=== PATIENT | male | born 1950 | race Caucasian/White ===

== ENCOUNTER → 2018-09-22 08:00 | Outpatient (CLI) | payer MEDICARE, OTHER, SELFPAY ==
--- NOTE | 2018-09-22 | IMM_PTH ---
PATIENT: RADHA DOMINGUEZ LOC: [facility] U#:[id number] AGE/SX: 75/M ROOM: RE09/22/[address]: Dr. Chandan Clifford MD : 1950 BED: DIS: SPEC #: [id number] RECD: 09/24/18 13:50 STATUS: CAROLYN MEAGHAN #: [id number] ROCK: 09/22/18 00:[address]: Chandan Clifford DEPT: IMMUNOHISTOCHEMISTRY RECD BY: Mary Puri Tissues: C - PROSTATE RIGHT Procedures: P40 (add) 34BE12 (initial) PHYSICIAN & INSTITUTION [place] [id number] SPECIMEN INFORMATION: Tissue Source: C - Right prostate, base, core biopsy Clinical Info: Elevated PSA Specimen Number: [id number] CPT code: 13371, 80340 METHODOLOGY: Deparaffinized sections of prefer/formalin-fixed tissue or PAP/DQ stained slides are incubated with monoclonal/polyclonal antibodies/oligonucleotide probes. Localization is made via biotin free immunoperoxidase method. Appropriate controls are performed and reacted as expected. Results on target cell population are indicated in the following table: RESULTS: ANTIBODY / CLONE RESULT Block C P40 (BC28) negative 34BE12 (34BE12) negative These tests were developed and their performance characteristics determined by [facility]. They may not have been cleared or approved by the U.S. Food and Drug Administration. The FDA has determined that such clearance or approval is not necessary. INTERPRETATION: C. Right prostate, base, core biopsy: Focal adenocarcinoma. SJ:herminia 09/25/18
--- NOTE | 2018-09-22 08:00 | PROSBIL_PTH ---
PATIENT: RADHA DOMINGUEZ LOC: [facility] U#:[id number] AGE/SX: 75/M ROOM: RE09/22/[address]: Dr. Chandan Clifford MD : 1950 BED: DIS: SPEC #: [id number] RECD: 09/22/18 16:56 STATUS: CAROLYN MEAGHAN #: [id number] ROCK: 09/22/18 08:[address]: Chandan Clifford DEPT: SURGICAL PATHOLOGY RECD BY: Justice Tracey Tissues: A - PROSTATE RIGHT B - PROSTATE RIGHT C - PROSTATE RIGHT D - PROSTATE LEFT E - PROSTATE LEFT F - PROSTATE LEFT Procedures: PROSTATE BX HEADER OPERATION: Prostate biopsy PRE-OP DIAGNOSIS: Elevated PSA TISSUE SUBMITTED: A - Right apex, B - Right mid, C - Right base, D - Left apex, E - Left mid, F - Left base MICROSCOPIC DIAGNOSIS A. Right prostate, apex, core biopsy: Prostatic tissue, negative for malignancy. B. Right prostate, mid, core biopsy: Prostatic tissue, negative for malignancy. Focal atrophy. C. Right prostate, base, core biopsy: Prostatic adenocarcinoma: [place] grade: 3+3=6 Number of cores involved: 1 out of 2 Proportion of tissue involved: <5% Perineural invasion: Not identified. Greatest tumor length: 0.1 cm Focal minimal acute and chronic inflammation and atrophy. See comment. D. Left prostate, apex, core biopsy: Prostatic tissue, negative for malignancy. E. Left prostate, mid, core biopsy: Prostatic tissue, negative for malignancy. Focal acute and chronic inflammation. F. Left prostate, base, core biopsy: Prostatic tissue, negative for malignancy. Focal mild acute and chronic inflammation. SJ:herminia 09/24/18 COMMENT C. Immunohistochemistry ([id number]) supports the above diagnosis. Case has been reviewed in consultation with Dr. Stewart who concurs with the above diagnosis. IDC:AM MICROSCOPIC DESCRIPTION Slides are reviewed. GROSS DESCRIPTION A - Received is one container designated prostate, right apex. The specimen consists of one elongated fragment of light hughes-white soft tissue measuring 1.5 cm in length and 0.1 cm in diameter. The specimen is totally submitted in one cassette. B - Received is one container designated prostate, right mid. The specimen consists of two elongated fragments of light hughes-white soft tissue each measuring 1.5 cm in length and 0.1 cm in diameter. The specimen is totally submitted in one cassette. C - Received is one container designated prostate, right base. The specimen consists of two elongated fragments of light hughes-white soft tissue measuring 1.3 and 1.5 cm in length and 0.1 cm in diameter. The specimen is totally submitted in one cassette. D - Received is one container designated prostate, left apex. The specimen consists of two elongated fragments of light hguhes-white soft tissue each measuring 1.8 cm in length and 0.1 cm in diameter. The specimen is totally submitted in one cassette. E - Received is one container designated prostate, left mid. The specimen consists of two elongated fragments of light hughes-white soft tissue measuring 1.2 and 1.5 cm in length and 0.1 cm in diameter. The specimen is totally submitted in one cassette. F - Received is one container designated prostate, left base. The specimen consists of two elongated fragments of light hughes-white soft tissue each measuring 1.5 cm in length and 0.1 cm in diameter. The specimen is totally submitted in one cassette. / CHRISTI:herminia 09/23/18 TC:0 CPT: G0146 ADDENDUM ADDENDUM ADDENDUM ADDENDUM ADDENDUM ADDENDUM ADDENDUM ADDENDUM 10/14/2018 09:57 ADDENDUM 10/14/2018 09:57 ADDENDUM 10/14/2018 09:57 ADDENDUM 10/14/2018 09:57 ADDENDUM 10/14/2018 09:57 An order for Oncotype testing was received from Dr. Clifford. This necessitated case review, block and slide selection by pathologist at [facility]. Genomic Prostate Score = 32 Results of the complete Oncotype testing ([employer] report) are viewable in EMR under: Reports - Pathology - Lab Pathology Report, Scanned.
== END ==
PROVIDERS: Referring Provider Urology; Visit Provider Urology
DX: C61 Malignant neoplasm of prostate (principal); N42.89 Other specified disorders of prostate
CPT/HCPCS: 88305; 88341; 88342; G0416; J3490

== ENCOUNTER 2018-11-11 05:23 | Day surgery (SDC) | payer MEDICARE, OTHER, SELFPAY ==
[2018-11-05 11:27] VITALS: BP 113/65; PULSE 52; RESP 16; TEMP 36.8; O2SAT 98; BMI 28.8
--- NOTE | 2018-11-05 11:50 | SDCEKG_ITS ---
Test Reason : Blood Pressure : / mmHG Vent. Rate : 052 BPM Atrial Rate : 052 BPM P-R Int : 206 ms QRS Dur : 088 ms QT Int : 428 ms P-R-T Axes : -09 -19 008 degrees QTc Int : 398 ms Sinus bradycardia Inferior infarct , age undetermined Abnormal ECG Confirmed by MANINDER GALINDO, SHANIA ([id number]), newspaper or periodical editor SOILA CHEN ([id number]) on 11/10/2018 12:55:43 PM Referred By: Chandan Clifford Confirmed By:SHANIA DICKENS MD
[2018-11-05 12:50] LABS: Hematocrit 41.4 % (40-54); Mean Corp Hgb Conc 33.8 g/gl (32-36); Mean Corpuscular Hgb 30.8 pg (27.0-32.0); Mean Platelet Vol. 11.1 fl (6.2-12.0); Platelet Count 204 K/mm3 (150-450); RBC Distribution Width CV 13.5 % (11.6-14.6); RBC Distribution Width SD 44.1 fl (35.1-43.9); Red Blood Count 4.55 M/mm3 (4.6-6.2); White Blood Count 4.6 K/mm3 (4.4-11.0)
[2018-11-05 12:52] LABS: Scan Indicated on CBC? Y/N NO
[2018-11-05 13:03] LABS: Anion Gap 6 (5-15); BUN 21 mg/dL (7-18); BUN/Creat Ratio 20.4 RATIO (10-20); Calcium,Total 8.8 mg/dL (8.5-10.1); Chloride 108 mmol/L (98-107); Creatinine, Serum 1.03 mg/dL (0.70-1.30); EST Glomerular Filtration Rate 77 mL/min (>60); Est Glom Filt Rate - Afr Amer 93 mL/min (>60); Estimated Creatinine Clearance 70.55 ml/min; Glucose 139 mg/dL (74-106); Potassium 4.4 mmol/L (3.5-5.1); Sodium Level 140 mmol/L (136-145)
[2018-11-05 13:11] LABS: Hemoglobin A1c 6.9 % (4.2-6.3)
[2018-11-11] VITALS (17 sets, daily range): BP systolic 110–180; BP diastolic 55–112; PULSE 51–82; RESP 10–18; TEMP 36.4–36.9; O2SAT 94–100; BMI 28.8
--- NOTE | 2018-11-11 | IMM_PTH ---
PATIENT: RADHA DOMINGUEZ LOC: [facility] U#:[id number] AGE/SX: 68/M ROOM: RE11/11/[address]: Dr. Chandan Clifford MD : 1950 BED: DIS: 11/12/2018 SPEC #: [id number] RECD: 11/16/18 11:57 STATUS: CAROLYN REQ #: [id number] ROCK: 11/11/18 00:[address]: Chandan Clifford DEPT: IMMUNOHISTOCHEMISTRY RECD BY: Mary Puri ENTERED: 11/16/18 12:04 SP TYPE: IMMUNO OTHR DR: Dr. Tom Nath DO Tissues: Prostate, NOS Procedures: 34BE12 (add) P40 (add) 34BE12 (initial) PHYSICIAN & INSTITUTION [place] [id number] SPECIMEN INFORMATION: Tissue Source: Prostate Clinical Info: Malignant neoplasm of prostate; elevated PSA Specimen Number: [id number] #5 & 7 CPT code: 62378, 90326 x3 METHODOLOGY: Deparaffinized sections of prefer/formalin-fixed tissue or PAP/DQ stained slides are incubated with monoclonal/polyclonal antibodies/oligonucleotide probes. Localization is made via biotin free immunoperoxidase method. Appropriate controls are performed and reacted as expected. Results on target cell population are indicated in the following table: RESULTS: ANTIBODY / CLONE RESULT Block 5 P40 (BC28) negative 34BE12 (34BE12) negative Block 7 P40 (BC28) negative 34BE12 (34BE12) negative These tests were developed and their performance characteristics determined by [facility]. They may not have been cleared or approved by the U.S. Food and Drug Administration. The FDA has determined that such clearance or approval is not necessary. INTERPRETATION: Prostate, radical prostatectomy: Adenocarcinoma. AM:herminia 11/17/18
[2018-11-11 06:16] LABS: Bedside Glucose 126 mg/dL (70-110)
[2018-11-11] MEDS: Cefazolin 2 GM in 0.9% Normal Saline 100 ML IV (07:29)
--- NOTE | 2018-11-11 07:30 | PROST_PTH ---
PATIENT: RADHA DOMINGUEZ LOC: [facility] [place] U#:[id number] AGE/SX: 68/M ROOM: RE11/11/[address]: Dr. Chandan Clifford MD : 1950 BED: DIS: 11/12/2018 SPEC #: [id number] RECD: 11/11/18 12:10 STATUS: CAROLYN REAshlee #: [id number] ROCK: 11/11/18 07:[address]: Chandan Clifford DEPT: SURGICAL PATHOLOGY RECD BY: Justice Tracey ENTERED: 11/11/18 12:38 SP TYPE: PROSTATE OTHR DR: Dr. Tom Nath, DO Tissues: Prostate, NOS Procedures: Surgery Specimen Level HEADER NOPERATION: Laparoscopic robotic radical prostatectomy with IOC PRE-OP DIAGNOSIS: Malignant neoplasm of prostate, elevated PSA TISSUE SUBMITTED: Prostate MICROSCOPIC DIAGNOSIS Prostate, radical prostatectomy: Adenocarcinoma. See cancer checklist below. AM:herminia 11/17/18 COMMENT PROSTATE CANCER (RADICAL) SUMMARY: Procedure - radical prostatectomy Prostate size - 7 x 5 x 4 cm Lymph node sampling - no lymph nodes present Histologic type - adenocarcinoma Histologic grade (Zurich Pattern): Primary pattern - 3 Secondary pattern - 3 Tertiary pattern - Total Zurich score - 6 Tumor Quantitation: Tumor size - 1 x 0.3 x 0.2 cm Extraprostatic extension - not identified Seminal vesicle invasion - seminal vesicles present and free of carcinoma. Margins - uninvolved by invasive carcinoma. Treatment effect on carcinoma - unknown Lymph-Vascular invasion - not present Perineural invasion - not present Additional pathologic findings - Benign nodular hyperplasia, acute and chronic inflammation (focal). Focal high-grade prostatic intraepithelial neoplasia (HGPIN). Ancillary studies - PATHOLOGIC STAGE: pT2a Nx Mx The above summary is in compliance with [employer] [place] [employer] Path[employer] (CAP) Cancer Protocols Checklist and [place] [employer] Joint Committee on Cancer (AJCC), Staging Manual, 8th Ed. Immunohistochemistry ([id number]) supports the above diagnosis. MICROSCOPIC DESCRIPTION Slides are reviewed. GROSS DESCRIPTION Received in fixative is one container labeled with the patient's name and designated prostate. The specimen consists of a prostate with attached seminal vesicles and vas deferens. The prostate measures 7 cm transversely, 5 cm craniocaudally and 4 cm anterior-posteriorly. The gland weighs 87.2 gm. The external surface is smooth and glistening. On palpation, no rubbery nodularities are identified. The specimen is differentially inked as follows: anterior - red, right half - blue, left half - green and entire posterior surface - black. The glandular is serially sectioned in an apex to base of gland pattern at approximately 3-4 mm sections. No distinct mass lesions are identified. Furniture Upholstery Mechanic sections are submitted in 15 cassettes as follows: 1 - distal urethral margin (apex), 2 - proximal urethral margin (bladder shave), 3 - right and left seminal vesicles and vas deferens, 4-7 - apex, 8-11 - mid portion of gland, 12-15 - base of gland. / AM:rg 11/12/18 Additional sections are submitted as follows: 16-21 - mid portion, 22-25 - basal portion of prostate gland. / AM:herminia 11/13/18 TC:0 CPT: 71848
--- NOTE | 2018-11-11 11:15 | PCM.OPRPT ---
Report of Operation Date of Procedure: 11/11/18 Pre-Operative Diagnosis: Prostate cancer Post-Operative Diagnosis: Same Surgery/Procedure Performed:: Laparoscopic robotic assisted radical prostatectomy with bilateral nerve sparing, EMG monitoring of pelvic nerves and sphincter, suture suspension of the urethra Description of Surgical Findings:: 68-year-old male who has prostate cancer we talked about the options of management including radiation therapy observation or surgery he wanted to proceed with surgery we talked about the risks and benefits of surgery the risk of incontinence loss of erections, risk of failure to cure cancer and needing more treatment such as radiation chemotherapy or hormone therapy. 68-year-old male taken back to the operating room after smooth induction of general anesthesia he was placed supine on the table in the dorsolithotomy position he was placed in an position in stirrups for radical prostatectomy for approach the prostate. We placed we placed the Veress needle into the peritoneal cavity and insufflated the peritoneal cavity CO2 gas placed our robotic trochars are camera trochars and assistant merchandiser trochars were then docked the robot started with the dissection posterior to the bladder dissecting out the right vas deferens and right seminal vesicle this was done with minimal cauterization and then dissected out the left seminal vesicle and left vas deferens again with minimal cauterization was able to create a space above the do not be his fascia above between the prostate and an obvious fascia up to the apex posteriorly I then dropped the bladder created the space of Retzius incised the endopelvic fascia in the right side dissected the levator muscles and nerves and muscle bundles and and vessels off the prostate of the right side went to the left side of the same thing and then place a stitch in the dorsal vein complex I then transected through the prostate and the bladder neck had a very wide bladder neck with the attachment to the bladder extremely wide on the prostate the the bladder was then dissected off the prostate again had a very large opening in the bladder neck because of the wide dissection then in the posterior aspect we got down to the vas deferens and seminal vesicles pulled these up I then underneath the prostate teased the neurovascular bundle off the posterior aspect of the prostate all the way until I got to the pedicle of the prostate on the right side with clips in the pedicle and then incised the endopelvic fascia above the prostate and then slowly teased the neurovascular bundle off the right posterior aspect side of the prostate in a meticulous fashion all the way up to the apex with no violation of the neurovascular bundle this is a complete sparing of the neurovascular on the right side went very nicely. There went to the left side again got underneath the prostate swept the neurovascular bundle off the prostate in the left side all the way laterally and then incised the endopelvic fascia to the prostate pulled the veil down over the prostate came to the pedicle on the left side and then was able to sweep the neurovascular bundles off the left prostate all the way to the apex we then transected through the dorsal vein complex and placed an extra stitch in the dorsal vein complex and then transected to the urethra and the prostate was then put in and in the Endo Catch bag. At this point we reconstructed the bladder neck closing the bladder neck in a tennis racquet fashion so there was a small digit light opening the top of the bladder and then we did a suture suspension of the urethra from the bladder neck to the urethra suspending the urethra up to prevent incontinence and bring in the bladder neck to the urethra over the catheter we completed this anastomosis was completed and then we flushed the catheter bladder and the catheter was flushed to clear the anastomosis was a perfect anastomosis with no leakage we then extracted the prostate prostate to the super umbilical incision the the the supraumbilical incision was open up the prostate extracted and we closed the extraction site with interrupted stitches the robot was undocked we closed our air seal port and central central port with a Layo Robertson stitch all the incisions were closed subcuticular stitches patient's anesthetic is currently being reversed. Very nice dissection very nice sparing of both left and right nerve bundles during the procedure we also did EMG monitoring of the nerve bundles on the right side the EMG was intact before and after the dissection on the left the EMG was intact before and after the dissection and also the apex of the prostate the we checked the sphincter and the sphincter was intact with with pelvic nerves were intact to the sphincter before and after the dissection. Patient anesthetic was reversed and he was taken to PACU good condition. Type of Anesthesia:: General Estimated Blood Loss (mL): 100 - Admit VTE Documentation VTE Present on Admission: No VTE Mechan Device Prophylaxis: SCD's VTE Pharm Prophylaxis ordered?: No
[2018-11-11] MEDS: Bupivacaine Mpf 0.5% 30 ML VIAL (11:17)
[2018-11-11 12:00] LABS: Bedside Glucose 208 mg/dL (70-110)
[2018-11-11] MEDS: Ketorolac 15 MG/ML Vial IV ×3 (12:41→22:38)
--- NOTE | 2018-11-11 12:57 | SUR.PHASEI ---
AT 1230 IN PACU, PATIENT STATES I'D RATHER BE THAN HAVE THIS PAIN...I WANT TO BE PUT OUT UNTIL IT'S GONE. MUCH LESS RESTLESS, ABLE TO LAY IN A RELAXED POSITIONED BUT MOANS PERIODICALLY, STATES I THINK THE MOANING HELPS. HAS BEEN MEDICATED EXTENSIVELY PER PACU ANESTHESIA ORDERS. AT 1250, ABLE TO REST QUIETLY WITH EYES CLOSED, WHEN ASKED TO RATE HIS PAIN, HE STATES 8 OR 10. UPON FURTHER EXPLORING, PATIENT SAID HE WAS AFRAID IF HE DIDN'T SAY IT WAS AN 8 OR 10/10 PAIN, NURSING WOULD NOT MEDICATE HIM. REEDUCATED ON THE PAIN SCALE AND PATIENT PERCEPTION OF PAIN, PATIENT THEN RATED HIS PAIN AT 6/10. MUCH MORE RELAXED, STATES PAIN IS MORE DULL NOW.
[2018-11-11 13:04] LABS: Hemoglobin 13.5 g/dl (13.0-16.5); Mean Corp Hgb Conc 34.6 g/gl (32-36); Mean Corpuscular Hgb 31.5 pg (27.0-32.0); Mean Corpuscular Volume 91.1 fL (80-94); Mean Platelet Vol. 10.7 fl (6.2-12.0); Platelet Count 172 K/mm3 (150-450); RBC Distribution Width CV 13.2 % (11.6-14.6); RBC Distribution Width SD 43.3 fl (35.1-43.9); Red Blood Count 4.28 M/mm3 (4.6-6.2); White Blood Count 8.1 K/mm3 (4.4-11.0)
[2018-11-11 13:05] LABS: Scan Indicated on CBC? Y/N NO
[2018-11-11 13:10] LABS: Anion Gap 8 (5-15); BUN 14 mg/dL (7-18); BUN/Creat Ratio 12.6 RATIO (10-20); Calcium,Total 8.1 mg/dL (8.5-10.1); Chloride 108 mmol/L (98-107); Creatinine, Serum 1.11 mg/dL (0.70-1.30); EST Glomerular Filtration Rate 70 mL/min (>60); Est Glom Filt Rate - Afr Amer 85 mL/min (>60); Estimated Creatinine Clearance 65.46 ml/min; Glucose 212 mg/dL (74-106); Potassium 4.2 mmol/L (3.5-5.1); Sodium Level 142 mmol/L (136-145)
[2018-11-11] MEDS: Lactated Ringers 1,000 ML 125 ML IV (13:34)
[2018-11-11 14:55] LABS: Bedside Glucose 225 mg/dL (70-110)
[2018-11-11] MEDS: Ciprofloxacin 500 MG Tablet PO ×2 (14:56→22:42)
[2018-11-11] MEDS: Ondansetron 4 MG/2 ML Vial IV (15:14)
[2018-11-11] MEDS: Morphine 2 MG/ML Syringe IV ×2 (15:14→19:53)
--- NOTE | 2018-11-11 16:09 | DCINST_ITS ---
Discharge Diet: Light diet - advance as tolerated Discharge Activity: May not drive while taking narcotic pain medications., May Shower May resume sexual activity in: 6 weeks Call your doctor if your incision/area has: Continuous Slow Oozing, Sudden Increased Bleeding, Increased Pain/ Swelling, Increased Redness, Foul Smelling Discharge, Swelling at the incision site Suture Line Care: Avoid Pulling/Pushing, Avoid Pinching/Bending Catheter: Parker to leg bag, Parker to large bag Drain: [place] Instructions: Discharge Instructions for Radical Prostatectomy Allergies/Adverse Reactions: Allergies amiodarone Adverse Reaction (Verified 11/05/18 11:17) Vomiting Medications to take at Discharge Aspirin [Aspir 81] 81 mg PO DAILY 11/05/18 Atorvastatin Calcium [Lipitor] 40 mg PO QHS 11/05/18 Furosemide [Lasix] 20 mg PO DAILY PRN 11/05/18 Lactobacillus Combo No.11 [Probiotic] 1 each PO DAILY 11/05/18 Lisinopril [Zestril] 2.5 mg PO DAILY 11/05/18 Metoprolol Tartrate [Lopressor (Beta Wallace)] 12.5 mg PO BID 11/05/18 Multivitamin [Daily Multiple Vitamin] 1 each PO DAILY 11/05/18 RX: Garlic 1 each PO DAILY 11/05/18 Sitagliptin Phosphate [Januvia] 100 mg PO DAILY 11/05/18 Tamsulosin HCl [Flomax] 0.4 mg PO DAILY 11/05/18 Primary Care Physician: Tom Nath DO [Primary Care Provider] - Test Results: Test results from this visit will be discussed in further detail at your follow- up appointment, if applicable. Please Follow Up With: Chandan Clifford MD When: Call for appt, next thrusday to remove parker
[2018-11-11 16:56] LABS: Bedside Glucose 212 mg/dL (70-110)
[2018-11-11] MEDS: Insulin Lispro 100 UNIT/ML INSULN.PEN SC ×2 (17:16→22:37)
[2018-11-11] MEDS: 0.9% Normal Saline 1,000 ML 75 ML IV (17:16)
[2018-11-11] MEDS: oxyCODONE 5 MG Tablet PO (17:19)
[2018-11-11] MEDS: Docusate Sodium 100 MG Capsule 200 MG PO (22:37)
[2018-11-11] MEDS: Atorvastatin Calcium 40 MG Tablet PO (22:37)
[2018-11-11] MEDS: Metoclopramide 10 MG/2 ML Vial IV (22:38)
[2018-11-11] MEDS: Metoprolol Tartrate 25 MG Tablet 12.5 MG PO (22:40)
[2018-11-11 23:50] LABS: Bedside Glucose 219 mg/dL (70-110)
[2018-11-12 02:18] VITALS: BP 103/55; PULSE 61; RESP 18; TEMP 36.8; O2SAT 96
[2018-11-12] MEDS: 0.9% Normal Saline 1,000 ML 75 ML IV (05:08)
[2018-11-12] MEDS: Ketorolac 15 MG/ML Vial IV ×2 (05:56→12:34)
[2018-11-12 06:00] LABS: Hematocrit 31.9 % (40-54); Hemoglobin 10.9 g/dl (13.0-16.5); Mean Corp Hgb Conc 34.2 g/gl (32-36); Mean Corpuscular Hgb 31.4 pg (27.0-32.0); Mean Corpuscular Volume 91.9 fL (80-94); Mean Platelet Vol. 10.6 fl (6.2-12.0); Platelet Count 185 K/mm3 (150-450); RBC Distribution Width CV 13.3 % (11.6-14.6); RBC Distribution Width SD 43.1 fl (35.1-43.9); Red Blood Count 3.47 M/mm3 (4.6-6.2); White Blood Count 7.2 K/mm3 (4.4-11.0)
[2018-11-12 06:07] LABS: Anion Gap 8 (5-15); BUN 19 mg/dL (7-18); BUN/Creat Ratio 18.3 RATIO (10-20); Calcium,Total 7.7 mg/dL (8.5-10.1); Chloride 107 mmol/L (98-107); Creatinine, Serum 1.04 mg/dL (0.70-1.30); EST Glomerular Filtration Rate 76 mL/min (>60); Est Glom Filt Rate - Afr Amer 92 mL/min (>60); Estimated Creatinine Clearance 69.87 ml/min; Glucose 157 mg/dL (74-106); Potassium 4.4 mmol/L (3.5-5.1); Sodium Level 141 mmol/L (136-145)
[2018-11-12 06:08] LABS: Scan Indicated on CBC? Y/N NO
[2018-11-12] MEDS: Insulin Lispro 100 UNIT/ML INSULN.PEN SC (06:58)
[2018-11-12 07:11] LABS: Bedside Glucose 167 mg/dL (70-110)
[2018-11-12 07:33] VITALS: O2SAT 93
--- NOTE | 2018-11-12 07:44 | PCM.PN.BLA ---
Progress Note doing well bellow soft nause yesturday but none thia am if can keep food down, ambulate he can go home. with parker to leg bag.
[2018-11-12 08:00] VITALS: BP 108/62; PULSE 63; RESP 18; TEMP 37.1; O2SAT 95
[2018-11-12] MEDS: Ciprofloxacin 500 MG Tablet PO (09:18)
[2018-11-12] MEDS: Multivitamins,Therapeutic Tablet 1 TABLET PO (09:18)
[2018-11-12] MEDS: Docusate Sodium 100 MG Capsule 200 MG PO (09:18)
[2018-11-12 09:19] VITALS: PULSE 72
[2018-11-12] MEDS: LINAGLIPTIN 5 MG TABLET PO (09:19)
[2018-11-12] MEDS: Metoprolol Tartrate 25 MG Tablet 12.5 MG PO (09:19)
[2018-11-12] MEDS: Lisinopril 2.5 MG Tablet PO (09:20)
[2018-11-12 12:21] LABS: Bedside Glucose 147 mg/dL (70-110)
[2018-11-12 14:00] VITALS: BP 123/68; PULSE 78; RESP 18; TEMP 36.7; O2SAT 96
--- OUTSIDE RECORDS SUMMARY | 2019-01-13 01:24 | XMS RPT_ITS ---
:1950 Author Organization [facility] Care Team Providers Name Role Phone MENG NATH Attending Unavailable MENG NATH Primary Care Unavailable MENG NATH Primary Care Unavailable ROBB RANDOLPH MD. MENG Pizano Admitting Unavailable ROBB RANDOLPH MD. MENG Pizano Attending Unavailable MENG NATH Consulting Unavailable ROBB RANDOLPH MD. MENG Pizano Consulting Unavailable MENG NATH Attending Unavailable MENG NATH Primary Care Unavailable RJ BENITEZ MD, JR. Attending Unavailable MENG NATH Primary Care Unavailable RJ BENITEZ MD, JR. Attending Unavailable MENG NATH Primary Care Unavailable CHANDAN PARSON MD Attending Unavailable MENG NATH Primary Care Unavailable Chandan Parson Admitting Unavailable Chandan Parson Attending Unavailable Chandan Parson Referring Unavailable Meng Nath Primary Care Unavailable Chandan Parson Attending Unavailable Chandan Parson Referring Unavailable PROBLEMS PROBLEMS DATE TYPE CONDITION / CODE ATTENDING STATUS SOURCE 11/12/2018 Unknown C61 - Malignant Chandan Parson Active [facility] / Hospital C61(ICD-10) Repository 07/06/2018 Admitting Type 2 diabetes MENG NATH Active [facility] Diagnosis mellitus without Foundation complications / Repository E11.9(ICD-10) PROCEDURES PROCEDURES No Procedure Records FoundRESULTS RESULTS BEDSIDE GLUCOSE Collected: 11/12/2018 Status: F Source: PAZ 12:16 PM [facility] REPOSITORY TYPE CODE TESTS RESULT OUT OF REFERENCE UNITS RANGE LAB L501.080 70-110 mg/dL High BEDSIDE GLU 147 Result Comment: MANAGEMENT OF PATIENT CARE PER NURSING PROTOCOL Performed By: #### L501.080 #### [facility] Point of Care [address] [place], [place] [address] BEDSIDE GLUCOSE Collected: 11/12/2018 Status: F Source: PAZ 6:57 AM [facility] REPOSITORY TYPE CODE TESTS RESULT OUT OF REFERENCE UNITS RANGE LAB L501.080 70-110 mg/dL High BEDSIDE GLU 167 Result Comment: MANAGEMENT OF PATIENT CARE PER NURSING PROTOCOL Performed By: #### L501.080 #### [facility] Point of Care [address] [place] [address] BASIC METABOLIC Collected: 11/12/2018 Status: F Source: PAZ PROFILE (BMP) 5:32 AM [facility] REPOSITORY TYPE CODE TESTS RESULT OUT OF RANGE REFERENCE UNITS LAB L501.0100 74-106 mg/dL High GLU 157 Result Comment: Fasting Glucose result greater than or equal to 126 mg/dL suggests DIABETES MELLITUS per A.D.A. criteria. Please note revised GLUCOSE reference range effective 2017. LAB L501.1000 7-18 mg/dL High BUN 19 LAB L501.1100 0.70-1.30 mg/dL Normal CREAT,SERUM 1.04 Result Comment: The validity of the calculated GFR AND GFRAA in patients over 70 years has not been determined. Clinical correlation is essential. LAB L501.1110 >60 mL/min Normal EST GFR 76 Result Comment: Non- GFR Calc LAB L501.1115 >60 mL/min Normal EST GFR - AA 92 Result Comment: GFR Calc LAB L501.1255 ml/min Normal Estimated CRCL 69.87 LAB L501.1300 10-20 RATIO Normal BUN/CRE 18.3 LAB L501.2200 8.5-10 mg/dL Low .1 CA 7.7 LAB L501.5300 136-14 mmol/L Normal 5 NA 141 LAB L501.5600 3.5-5. mmol/L Normal 1 K 4.4 LAB L501.5900 98-107 mmol/L Normal CL 107 LAB L501.6100 21.0-3 mmol/L Normal 2.0 CO2 26.0 LAB L501.6200 5-15 Normal GAP 8 Performed By: #### L500.2500 #### [facility] [address] [facility] [place], [place], [address] CBC-COMPLETE BLOOD CNT Collected: 11/12/2018 Status: F Source: PAZ NO DIFF 5:32 AM [facility] REPOSITORY TYPE CODE TESTS RESULT OUT OF RANGE REFERENCE UNITS LAB L100.1000 4.4-11.0 K/mm3 Normal WBC 7.2 LAB L100.1200 4.6-6.2 M/mm3 Low RBC 3.47 LAB L100.1300 13.0-16.5 g/dl Low HGB 10.9 LAB L100.1400 40-54 % Low HCT 31.9 LAB L100.1500 80-94 fL Normal MCV 91.9 LAB L100.1600 27.0-32.0 pg Normal MCH 31.4 LAB L100.1700 32-36 g/gl Normal MCHC 34.2 LAB L100.1810 11.6-14.6 % Normal RDW CV 13.3 LAB L100.1820 35.1-43.9 fl Normal RDW SD 43.1 LAB L100.1900 150-450 K/mm3 Normal PLT 185 LAB L100.2000 6.2-12.0 fl Normal MPV 10.6 Performed By: #### L100.0500 #### [facility] [address] [facility] [facility] [place], [place], [id number] BEDSIDE GLUCOSE Collected: 11/11/2018 Status: F Source: PAZ 10:30 PM [facility] REPOSITORY TYPE CODE TESTS RESULT OUT OF REFERENCE UNITS RANGE LAB L501.080 70-110 mg/dL High BEDSIDE GLU 219 Result Comment: MANAGEMENT OF PATIENT CARE PER NURSING PROTOCOL Performed By: #### L501.080 #### [facility] Point of Care [address] [place] [address] BEDSIDE GLUCOSE Collected: 11/11/2018 Status: F Source: [place] 4:48 PM [facility] REPOSITORY TYPE CODE TESTS RESULT OUT OF REFERENCE UNITS RANGE LAB L501.080 70-110 mg/dL High BEDSIDE GLU 212 Result Comment: MANAGEMENT OF PATIENT CARE PER NURSING PROTOCOL Performed By: #### L501.080 #### [facility] Point of Care [address] [place] [address] DISCHARGE INSTRUCTION Observed: 11/11/2018 Status: F Source: [place] 4:09 PM [facility] REPOSITORY [facility] Medical Records Department [address] [place] [address] Instructions for Home/Discharge Instructions 11/11/18 1608 MR#: [id number] Acct: [id number] Name: RADHA DOMINGUEZ Rep #: [id number] : 1950 68 From: Chandan Parson MD PCP: Meng Nath DO Status: REG [facility] Discharge Diet: Light diet - advance as tolerated Discharge Activity: May not drive while taking narcotic pain medications., May Shower May resume sexual activity in: 6 weeks Call your doctor if your incision/area has: Continuous Slow Oozing, Sudden Increased Bleeding, Increased Pain/ Swelling, Increased Redness, Foul Smelling Discharge, Swelling at the incision site Suture Line Care: Avoid Pulling/Pushing, Avoid Pinching/Bending Catheter: Hanks to leg bag, Hanks to large bag Drain: [place] Instructions: Discharge Instructions for Radical Prostatectomy Allergies/Adverse Reactions: Allergies amiodarone Adverse Reaction (Verified 11/05/18 11:17) Vomiting Medications to take at Discharge Aspirin [Aspir 81] 81 mg PO DAILY 11/05/18 Atorvastatin Calcium [Lipitor] 40 mg PO QHS 11/05/18 Furosemide [Lasix] 20 mg PO DAILY PRN 11/05/18 Lactobacillus Combo No.11 [Probiotic] 1 each PO DAILY 11/05/18 Lisinopril [Zestril] 2.5 mg PO DAILY 11/05/18 Metoprolol Tartrate [Lopressor (Beta Wallace)] 12.5 mg PO BID 11/05/18 Multivitamin [Daily Multiple Vitamin] 1 each PO DAILY 11/05/18 RX: Garlic 1 each PO DAILY 11/05/18 Sitagliptin Phosphate [Januvia] 100 mg PO DAILY 11/05/18 Tamsulosin HCl [Flomax] 0.4 mg PO DAILY 11/05/18 Primary Care Physician: Meng Nath DO [Primary Care Provider] - Test Results: Test results from this visit will be discussed in further detail at your follow-up appointment, if applicable. Please Follow Up With: Chandan Parson MD When: Call for appt, next thrusday to remove keith 11/11/18 3610 <Electronically signed by Chandan Parson MD> Date Chandan Parson MD CC: Meng Nath DO Signed BEDSIDE GLUCOSE Collected: 11/11/2018 Status: F Source: PAZ 2:49 PM [facility] REPOSITORY TYPE CODE TESTS RESULT OUT OF REFERENCE UNITS RANGE LAB L501.080 70-110 mg/dL High BEDSIDE GLU 225 Result Comment: MANAGEMENT OF PATIENT CARE PER NURSING PROTOCOL Performed By: #### L501.080 #### [facility] Point of Care [facility] [place] [address] CBC-COMPLETE BLOOD CNT Collected: 11/11/2018 Status: F Source: PAZ NO DIFF 12:45 PM [facility] REPOSITORY Order Comment: Comments: To be done in PACU TYPE CODE TESTS RESULT OUT OF RANGE REFERENCE UNITS LAB L100.1000 4.4-11.0 K/mm3 Normal WBC 8.1 LAB L100.1200 4.6-6.2 M/mm3 Low RBC 4.28 LAB L100.1300 13.0-16.5 g/dl Normal HGB 13.5 LAB L100.1400 40-54 % Low HCT 39.0 LAB L100.1500 80-94 fL Normal MCV 91.1 LAB L100.1600 27.0-32.0 pg Normal MCH 31.5 LAB L100.1700 32-36 g/gl Normal MCHC 34.6 LAB L100.1810 11.6-14.6 % Normal RDW CV 13.2 LAB L100.1820 35.1-43.9 fl Normal RDW SD 43.3 LAB L100.1900 150-450 K/mm3 Normal PLT 172 LAB L100.2000 6.2-12.0 fl Normal MPV 10.7 Performed By: #### L100.0500 #### [facility] [address] [place], [address] BASIC METABOLIC Collected: 11/11/2018 Status: F Source: [place] PROFILE (BMP) 12:45 PM [facility] REPOSITORY Order Comment: TO BE DONE IN PACU Comments: To be done in PACU TYPE CODE TESTS RESULT OUT OF RANGE REFERENCE UNITS LAB L501.0100 74-106 mg/dL High GLU 212 Result Comment: Glucose result greater than or equal to 200 mg/dL suggests DIABETES MELLITUS per A.D.A. criteria. Please note revised GLUCOSE reference range effective 2017. LAB L501.1000 7-18 mg/dL Normal BUN 14 LAB L501.1100 0.70-1.30 mg/dL Normal CREAT,SERUM 1.11 Result Comment: The validity of the calculated GFR AND GFRAA in patients over 70 years has not been determined. Clinical correlation is essential. LAB L501.1110 >60 mL/min Normal EST GFR 70 Result Comment: Non- GFR Calc LAB L501.1115 >60 mL/min Normal EST GFR - AA 85 Result Comment: GFR Calc LAB L501.1255 ml/min Normal Estimated CRCL 65.46 LAB L501.1300 10-20 RATIO Normal BUN/CRE 12.6 LAB L501.2200 8.5-10 mg/dL Low .1 CA 8.1 LAB L501.5300 136-14 mmol/L Normal 5 NA 142 LAB L501.5600 3.5-5. mmol/L Normal 1 K 4.2 LAB L501.5900 98-107 mmol/L High CL 108 LAB L501.6100 21.0-3 mmol/L Normal 2.0 CO2 26.0 LAB L501.6200 5-15 Normal GAP 8 Performed By: #### L500.2500 #### [facility] [address] [place], [address] BEDSIDE GLUCOSE Collected: 11/11/2018 Status: F Source: [place] 11:58 AM [facility] REPOSITORY TYPE CODE TESTS RESULT OUT OF REFERENCE UNITS RANGE LAB L501.080 70-110 mg/dL High BEDSIDE GLU 208 Result Comment: MANAGEMENT OF PATIENT CARE PER NURSING PROTOCOL Performed By: #### L501.080 #### [facility] Point of Care [address] [place] [address] OPERATIVE REPORT Observed: 11/11/2018 Status: F Source: [place] 11:21 AM [facility] REPOSITORY [facility] Medical Records Department [address] [place] [address] Operative Report 11/11/18 1115 MR#: [id number] Acct: [id number] Name: RADHA DOMINGUEZ Rep #: [id number] : 1950 68 From: Chandan Parson MD PCP: Meng Nath DO Status: REG [facility] Y Location: [place] [address] Report of Operation Date of Procedure: 11/11/18 Pre-Operative Diagnosis: Prostate cancer Post-Operative Diagnosis: Same Surgery/Procedure Performed:: Laparoscopic robotic assisted radical prostatectomy with bilateral nerve sparing, EMG monitoring of pelvic nerves and sphincter, suture suspension of the urethra Description of Surgical Findings:: 68-year-old male who has prostate cancer we talked about the options of management including radiation therapy observation or surgery he wanted to proceed with surgery we talked about the risks and benefits of surgery the risk of incontinence loss of erections, risk of failure to cure cancer and needing more treatment such as radiation chemotherapy or hormone therapy. 68-year-old male taken back to the operating room after smooth induction of general anesthesia he was placed supine on the table in the dorsolithotomy position he was placed in an position in [facility] for radical prostatectomy for approach the prostate. We placed we placed the Veress needle into the peritoneal cavity and insufflated the peritoneal cavity CO2 gas placed our robotic trochars are camera trochars and clinical education assistant trochars were then docked the robot started with the dissection posterior to the bladder dissecting out the right vas deferens and right seminal vesicle this was done with minimal cauterization and then dissected out the left seminal vesicle and left vas deferens again with minimal cauterization was able to create a space above the do not be his fascia above between the prostate and an obvious fascia up to the apex posteriorly I then dropped the bladder created the space of Retzius incised the endopelvic fascia in the right side dissected the levator muscles and nerves and muscle bundles and and vessels off the prostate of the right side went to the left side of the same thing and then place a stitch in the dorsal vein complex I then transected through the prostate and the bladder neck had a very wide bladder neck with the attachment to the bladder extremely wide on the prostate the the bladder was then dissected off the prostate again had a very large opening in the bladder neck because of the wide dissection then in the posterior aspect we got down to the vas deferens and seminal vesicles pulled these up I then underneath the prostate teased the neurovascular bundle off the posterior aspect of the prostate all the way until I got to the pedicle of the prostate on the right side with clips in the pedicle and then incised the endopelvic fascia above the prostate and then slowly teased the neurovascular bundle off the right posterior aspect side of the prostate in a meticulous fashion all the way up to the apex with no violation of the neurovascular bundle this is a complete sparing of the neurovascular on the right side went very nicely. There went to the left side again got underneath the prostate swept the neurovascular bundle off the prostate in the left side all the way laterally and then incised the endopelvic fascia to the prostate pulled the veil down over the prostate came to the pedicle on the left side and then was able to sweep the neurovascular bundles off the left prostate all the way to the apex we then transected through the dorsal vein complex and placed an extra stitch in the dorsal vein complex and then transected to the urethra and the prostate was then put in and in the Endo Catch bag. At this point we reconstructed the bladder neck closing the bladder neck in a tennis racquet fashion so there was a small digit light opening the top of the bladder and then we did a suture suspension of the urethra from the bladder neck to the urethra suspending the urethra up to prevent incontinence and bring in the bladder neck to the urethra over the catheter we completed this anastomosis was completed and then we flushed the catheter bladder and the catheter was flushed to clear the anastomosis was a perfect anastomosis with no leakage we then extracted the prostate prostate to the super umbilical incision the the the supraumbilical incision was open up the prostate extracted and we closed the extraction site with interrupted stitches the robot was undocked we closed our air seal port and central central port with a Layo Robertson stitch all the incisions were closed subcuticular stitches patient's anesthetic is currently being reversed. Very nice dissection very nice sparing of both left and right nerve bundles during the procedure we also did EMG monitoring of the nerve bundles on the right side the EMG was intact before and after the dissection on the left the EMG was intact before and after the dissection and also the apex of the prostate the we checked the sphincter and the sphincter was intact with with pelvic nerves were intact to the sphincter before and after the dissection. Patient anesthetic was reversed and he was taken to PACU good condition. Type of Anesthesia:: General Estimated Blood Loss (mL): 100 - Admit VTE Documentation VTE Present on Admission: No VTE Mechan Device Prophylaxis: SCD's VTE Pharm Prophylaxis ordered?: No 11/11/18 1121 <Electronically signed by Chandan Parson MD> Date Chandan Parson MD CC: Chandan Parson MD; Meng Nath DO Signed BEDSIDE GLUCOSE Collected: 11/11/2018 Status: F Source: PAZ 5:50 AM [facility] REPOSITORY TYPE CODE TESTS RESULT OUT OF REFERENCE UNITS RANGE LAB L501.080 70-110 mg/dL High BEDSIDE GLU 126 Result Comment: MANAGEMENT OF PATIENT CARE PER NURSING PROTOCOL Performed By: #### L501.080 #### [facility] Point of Care [address] [place] [address] [place] [address] 12 LEAD ELECTROCARDIOGRAM Observed: 11/10/2018 Status: F Source: PAZ 12:56 PM [facility] REPOSITORY [facility] Cardiovascular Services [address] [place] [address] [place] [address] EKG - [facility] 11/05/18 1158 MR#: [id number] Acct: [id number] Name: RADHA DOMINGUEZ Rep #: [id number] : 1950 68 From: Ahsu Barahona MD Attending Dr: Venessa GALINDO,Chandan Espitia Status: PRE [facility] Ordering Dr: Fish Pinon MD Date: 11/05/18 Location: [facility] Sex: M C Admitted: Test Reason : Blood Pressure : / mmHG Vent. Rate : 052 BPM Atrial Rate : 052 BPM P-R Int : 206 ms QRS Dur : 088 ms QT Int : 428 ms P-R-T Axes : -09 - 008 degrees QTc Int : 398 ms Sinus bradycardia Inferior infarct , age undetermined Abnormal ECG Confirmed by MANINDER GALINDO, ASHU ([id number]), video news editor SOILA CHEN ([id number]) on 11/10/2018 12:55:43 PM Referred By: Chandan Parson Confirmed By:ASHU BARAHONA MD 11/10/18 1255 Date Ashu Barahona MD CC: Fish Pinon MD; Chandan Parson MD; Meng Nath DO Date Dictated: 11/05/18 1158 Date Transcribed: 11/05/181157 Cotton Sampler: Signed CBC-COMPLETE BLOOD CNT Collected: 11/05/2018 Status: F Source: PAZ NO DIFF 12:00 PM [facility] REPOSITORY TYPE CODE TESTS RESULT OUT OF RANGE REFERENCE UNITS LAB L100.1000 4.4-11.0 K/mm3 Normal WBC 4.6 LAB L100.1200 4.6-6.2 M/mm3 Low RBC 4.55 LAB L100.1300 13.0-16.5 g/dl Normal HGB 14.0 LAB L100.1400 40-54 % Normal HCT 41.4 LAB L100.1500 80-94 fL Normal MCV 91.0 LAB L100.1600 27.0-32.0 pg Normal MCH 30.8 LAB L100.1700 32-36 g/gl Normal MCHC 33.8 LAB L100.1810 11.6-14.6 % Normal RDW CV 13.5 LAB L100.1820 35.1-43.9 fl High RDW SD 44.1 LAB L100.1900 150-450 K/mm3 Normal PLT 204 LAB L100.2000 6.2-12.0 fl Normal MPV 11.1 Performed By: #### L100.0500 #### [facility] [address] [place], [address] BASIC METABOLIC Collected: 11/05/2018 Status: F Source: PAZ PROFILE (BMP) 12:00 PM [facility] REPOSITORY TYPE CODE TESTS RESULT OUT OF RANGE REFERENCE UNITS LAB L501.0100 74-106 mg/dL High GLU 139 Result Comment: Fasting Glucose result greater than or equal to 126 mg/dL suggests DIABETES MELLITUS per A.D.A. criteria. Please note revised GLUCOSE reference range effective 2017. LAB L501.1000 7-18 mg/dL High BUN 21 LAB L501.1100 0.70-1.30 mg/dL Normal CREAT,SERUM 1.03 Result Comment: The validity of the calculated GFR AND GFRAA in patients over 70 years has not been determined. Clinical correlation is essential. LAB L501.1110 >60 mL/min Normal EST GFR 77 Result Comment: Non- GFR Calc LAB L501.1115 >60 mL/min Normal EST GFR - AA 93 Result Comment: GFR Calc LAB L501.1255 ml/min Normal Estimated CRCL 70.55 LAB L501.1300 10-20 RATIO High BUN/CRE 20.4 LAB L501.2200 8.5-10 mg/dL Normal .1 CA 8.8 LAB L501.5300 136-14 mmol/L Normal 5 NA 140 LAB L501.5600 3.5-5. mmol/L Normal 1 K 4.4 LAB L501.5900 98-107 mmol/L High CL 108 LAB L501.6100 21.0-3 mmol/L Normal 2.0 CO2 26.0 LAB L501.6200 5-15 Normal GAP 6 Performed By: #### L500.2500, L501.9924 #### [facility] [address] [place], [place], [address] HEMOGLOBIN A1C Collected: 11/05/2018 Status: F Source: [place] 12:00 PM [facility] REPOSITORY TYPE CODE TESTS RESULT OUT OF RANGE REFERENCE UNITS LAB L501.9985 4.2-6.3 % High HGB A1C 6.9 Performed By: #### L500.2500, L501.9985 #### [facility] [address] [place], [address] TYPE AND SCREEN Collected: 11/05/2018 Status: F Source: [place] 12:00 PM [facility] REPOSITORY Order Comment: Reason for Type AND Screen/Red Cells: SURGERY Surgery Date: 11/11/18 Type of Surgery: RADICAL PROSTATECTOMY TYPE CODE TESTS RESULT OUT OF RANGE REFERENCE UNITS LAB B10.0800 A Normal BLOOD TYPE GEL NEGATIVE LAB B100.4000 Normal Antibody NEGATIVE Screen Performed By: #### B101.7450 #### [facility] [address] [place], [address] PROSTATE BIOPSY Observed: 09/22/2018 Status: F Source: [place] BILATERAL 8:00 AM [facility] REPOSITORY Patient: RADHA DOMINGUEZ : 1950 (68/M) Acct Num: [id number] Phys: Venessa GALINDO,[facility] Unit Num: [id number] Loc: LABSPEC Specimen: [id number] Received: 09/22/181655 Spec Type: PROST BX TISSUES 1 TISSUES: A. PROSTATE RIGHT B. PROSTATE RIGHT C. PROSTATE RIGHT D. PROSTATE LEFT E. PROSTATE LEFT F. PROSTATE LEFT ADDENDUM Addendum Number 1 An order for Oncotype testing was received from Dr. Parson. This necessitated case review, block and slide selection by [facility] at [facility]. Genomic Prostate Score = 32 Results of the complete Oncotype testing ([employer] report) are viewable in EMR under: Reports - Pathology - Lab Pathology Report, Scanned. Addendum Signed Timothy Gabriel MD 10/14 <signature on file> COMMENT C. Immunohistochemistry ([id number]) supports the above diagnosis. Case has been reviewed in consultation with Dr. Stewart who concurs with the above diagnosis. IDC:AM GROSS DESCRIPTION A - Received is one container designated prostate, right apex. The specimen consists of one elongated fragment of light hughes-white soft tissue measuring 1.5 cm in length and 0.1 cm in diameter. The specimen is totally submitted in one cassette. B - Received is one container designated prostate, right mid. The specimen consists of two elongated fragments of light hughes-white soft tissue each measuring 1.5 cm in length and 0.1 cm in diameter. The specimen is totally submitted in one cassette. C - Received is one container designated prostate, right base. The specimen consists of two elongated fragments of light hughes-white soft tissue measuring 1.3 and 1.5 cm in length and 0.1 cm in diameter. The specimen is totally submitted in one cassette. D - Received is one container designated prostate, left apex. The specimen consists of two elongated fragments of light hughes-white soft tissue each measuring 1.8 cm in length and 0.1 cm in diameter. The specimen is totally submitted in one cassette. E - Received is one container designated prostate, left mid. The specimen consists of two elongated fragments of light hughes-white soft tissue measuring 1.2 and 1.5 cm in length and 0.1 cm in diameter. The specimen is totally submitted in one cassette. F - Received is one container designated prostate, left base. The specimen consists of two elongated fragments of light hughes-white soft tissue each measuring 1.5 cm in length and 0.1 cm in diameter. The specimen is totally submitted in one cassette. / SJ:rg 09/23/18 TC:0 CPT: G0146 HEADER OPERATION: Prostate biopsy PRE-OP DIAGNOSIS: Elevated PSA TISSUE SUBMITTED: A - Right apex, B - Right mid, C - Right base, D - Left apex, E - Left mid, F - Left base MICROSCOPIC DESCRIPTION Slides are reviewed. MICROSCOPIC DIAGNOSIS A. Right prostate, apex, core biopsy: Prostatic tissue, negative for malignancy. B. Right prostate, mid, core biopsy: Prostatic tissue, negative for malignancy. Focal atrophy. C. Right prostate, base, core biopsy: Prostatic adenocarcinoma: [place] grade: 3+3=6 Number of cores involved: 1 out of 2 Proportion of tissue involved: <5% Perineural invasion: Not identified. Greatest tumor length: 0.1 cm Focal minimal acute and chronic inflammation and atrophy. See comment. D. Left prostate, apex, core biopsy: Prostatic tissue, negative for malignancy. E. Left prostate, mid, core biopsy: Prostatic tissue, negative for malignancy. Focal acute and chronic inflammation. F. Left prostate, base, core biopsy: Prostatic tissue, negative for malignancy. Focal mild acute and chronic inflammation. SJ:herminia 09/24/18 PSA RESULTS No results available. Signed Timothy Gabriel MD 09/25/18 <signature on file> Performed By: #### PPROSBIL #### [facility] [address] [place] [address]. [place], [address] IMMUNOHISTOCHEMISTRY Observed: 09/22/2018 Status: F Source: [place] 12:00 AM [facility] REPOSITORY Patient: RADHA DOMINGUEZ : 1950 (68/M) Acct Num: [id number] Phys: Venessa GALINDO,Bhavik Unit Num: [id number] Loc: LABSPEC Specimen: [id number] Received: 09/24/18 - [facility]0 Spec Type: IMMUNO TISSUES 1 TISSUES: C. PROSTATE RIGHT SPECIMEN INFORMATION: Tissue Source: C - Right prostate, base, core biopsy Clinical Info: Elevated PSA Specimen Number: [id number] CPT code: 97452, 45128 METHODOLOGY: Deparaffinized sections of prefer/formalin-fixed tissue or PAP/DQ stained slides are incubated with monoclonal/polyclonal antibodies/oligonucleotide probes. Localization is made via biotin free immunoperoxidase method. Appropriate controls are performed and reacted as expected. Results on target cell population are indicated in the following table: RESULTS: ANTIBODY / CLONE RESULT Block C P40 (BC28) negative 34BE12 (34BE12) negative These tests were developed and their performance characteristics determined by [facility]. They may not have been cleared or approved by the U.S. Food and Drug Administration. The FDA has determined that such clearance or approval is not necessary. INTERPRETATION: C. Right prostate, base, core biopsy: Focal adenocarcinoma. SJ:herminia 09/25/18 PHYSICIAN AND INSTITUTION [address] [address] Signed Timothy Harvey 09/25/18 <signature on file> Performed By: #### PIMM #### [facility] [address], [address] PSA Collected: 08/25/2018 Status: F Source: TwoF 2:30 PM [facility] REPOSITORY TYPE CODE TESTS RESULT OUT OF REFERENCE UNITS RANGE LAB PSA(LOINC) 0.00-4.00 ng/mL High Prostate 10.29 Specific Antigen Performed By: #### PSA #### [address] [place] [address] MRI BRAIN W/ + W/O Observed: 08/20/2018 Status: F Source: TwoF CONTRAST 1:00 PM [facility] REPOSITORY ORIGINAL MRI BRAIN W/ + W/O CONTRAST Clinical Statement: SYNCOPE AND COLLAPSE. TECHNIQUE: Multiplanar, multisequence imaging of the brain was performed before and after the administration of IV contrast. COMPARISON: None. FINDINGS: There is no mass, mass-effect, or abnormal extra- axial fluid collection. Diffusion imaging shows no hyperacute, acute, or early subacute infarction. There is no abnormal brain parenchymal or l eptomeningeal enhancement. The cerebellar vermis is slightly small, of unlikely clinical significance. A few punctate scattered FLAIR hyperintensities in the cerebral white matter are nonspecific and within normal limits for age. The ventricles are normal in size, shape and position. There are normal sig nal voids in the larger intracranial vessels. The mastoid air cells are clear. The marrow signal pattern is within normal limits. Mucous retention cysts are visible in the maxillary sinuses. An 8 mm Tornwaldt cyst is noted. IMPRESSION: Normal MRI of the brain. Interpreted By: Kota Beatty Preliminary Report By: Kota Beatty Electronically Signed By: Kota Beatty Dictated Date: 08/20/2018 1:59:39 PM Prelim Date: 08/20/2018 1:59:39 PM Sign Date: 08/20/2018 2:06:38 PM VL CAROTID BILATERAL Observed: 08/20/2018 Status: F Source: TwoF DUPLEX 11:51 AM [facility] REPOSITORY ORIGINAL Bilateral carotid artery ultrasound, grayscale study with duplex Doppler exam including color Doppler interrogation and waveform analysis HISTORY: Syncope COMPARISON: None Note: Stenosis measurements are made with SRU consensus criteria where applicable. Bilaterally, the common carotid arteries show minor intimal thickening. Vertebral arteries are patent bilaterally with antegrade flow. Bilaterally, there is some atherosclerotic irregularity of the inte rnal carotid arteries. Visually, the proximal RIGHT ICA shows narrowing that is approximately 50% diameter reduction. On the LEFT, there is no significant visual stenosis identified. However, there is n o significant turbulent flow and velocities are unremarkable. Peak systolic velocity of the RIGHT ICA is 87 cm/s and the maximum peak systolic velocity of the LEFT ICA is 75 cm/s. No additional contributory abnormality seen. IMPRESSION: No hemodynamically significant ICA stenosis is identified on this exam. Interpreted By: Kota Donato MD Preliminary Report By: Kota Donato MD Electronically Signed By: Kota Donato MD Dictated Date: 08/20/2018 12:44:57 PM Prelim Date: 08/20/2018 12:44:57 PM Sign Date: 08/20/2018 12:47:49 PM BUN Collected: 08/17/2018 Status: F Source: [facility] 6:48 AM [facility] REPOSITORY TYPE CODE TESTS RESULT OUT OF RANGE REFERENCE UNITS LAB BUN(LOINC) 7-18 mg/dL High BUN 20 Performed By: #### BUN, CRE, GLF, GFR #### [address] [address] CRE Collected: 08/17/2018 Status: F Source: [facility] 6:48 AM [facility] REPOSITORY TYPE CODE TESTS RESULT OUT OF REFERENCE UNITS RANGE LAB CRE(LOINC) 0.70-1.30 mg/dL Creatinine Lvl 1.06 (s) Performed By: #### BUN, CRE, GLF, GFR #### [address] [address] GLF Collected: 08/17/2018 Status: F Source: [facility] 6:48 AM [facility] REPOSITORY TYPE CODE TESTS RESULT OUT OF REFERENCE UNITS RANGE LAB GLF(LOINC) 83-110 mg/dL High Glucose 145 Fasting Performed By: #### BUN, CRE, GLF, GFR #### [address] [address] .GFR Collected: 08/17/2018 Status: F Source: [facility] 6:48 AM [facility] REPOSITORY TYPE CODE TESTS RESULT OUT OF REFERENCE UNITS RANGE LAB GFRAA(LOINC ml/min/1.73 ) sqm GFR 85 Vincentian Result Comment: GFR Population mean for , Non- Americans Ages 20-29 = 116 mL/min/1.73 sq.m. Ages 30-39 = 107 mL/min/1.73 sq.m. Ages 40-49 = 99 mL/min/1.73 sq.m. Ages 50-59 = 93 mL/min/1.73 sq.m. Ages 60-69 = 85 mL/min/1.73 sq.m. Ages 70+ = 75 mL/min/1.73 sq.m. Chronic Kidney Disease: Less than 60 mL/min/1.73 square meters End Stage Renal Disease: Less than 15 mL/min/1.73 square meters LAB GFRNO(LOINC) ml/min/1.73sqm GFR Non- 70 Result Comment: GFR Population mean for , Non- Americans Ages 20-29 = 116 mL/min/1.73 sq.m. Ages 30-39 = 107 mL/min/1.73 sq.m. Ages 40-49 = 99 mL/min/1.73 sq.m. Ages 50-59 = 93 mL/min/1.73 sq.m. Ages 60-69 = 85 mL/min/1.73 sq.m. Ages 70+ = 75 mL/min/1.73 sq.m. Chronic Kidney Disease: Less than 60 mL/min/1.73 square meters End Stage Renal Disease: Less than 15 mL/min/1.73 square meters Performed By: #### BUN, CRE, GLF, GFR #### [address] [address] XR FOREIGN BODY LOC Observed: 08/17/2018 Status: F Source: [facility] EYE BILATERAL 6:15 AM [facility] REPOSITORY ORIGINAL Orbits 2 views HISTORY: History of metal in the eye years ago. COMPARISON: None There is no metallic radiopaque foreign body referable to the orbits on this exam. Interpreted By: Kota Donato MD Preliminary Report By: Kota Donato MD Electronically Signed By: Kota Donato MD Dictated Date: 08/17/2018 8:10:47 AM Prelim Date: 08/17/2018 8:10:47 AM Sign Date: 08/17/2018 8:11:07 AM CMP Collected: 07/06/2018 Status: F Source: [facility] 3:10 PM [facility] REPOSITORY TYPE CODE TESTS RESULT OUT OF REFERENCE UNITS RANGE LAB GLU(LOINC) 80-115 mg/dL Glucose High Level 127 LAB NA(LOINC) 136-145 mmol/L Sodium Level 143 LAB K(LOINC) 3.5-5.1 mmol/L Potassium Level 4.8 LAB CL(LOINC) 98-107 mmol/L Chloride 105 LAB CO2(LOINC) 23-31 mmol/L CO2 28 LAB EBAL(LOINC mEq/L ) Electrolyte Balance 10.0 LAB BUN(LOINC) 7-18 mg/dL BUN High 23 LAB CRE(LOINC) 0.70-1.30 mg/dL Creatinine Lvl (s) 1.22 LAB BC(LOINC) 7-27 ratio BUN/Creatinine 19 Ratio LAB CA(LOINC) 8.4-10.2 mg/dL Calcium Lvl 9.5 LAB PROT(LOINC 6.4-8.2 G/dL ) Total Protein 6.4 LAB ALB(LOINC) 3.4-4.8 G/dL Albumin Level 3.8 LAB GLB(LOINC) G/dL Globulin 2.6 LAB AG(LOINC) 1.1-2.5 ratio A/G Ratio 1.5 LAB BILT(LOINC 0.2-1.0 mg/dL ) Bili Total 0.5 LAB AP(LOINC) 40-135 U/L Alk Phos 51 LAB AST(LOINC) 10-40 U/L AST/SGOT 13 LAB ALT(LOINC) 10-35 U/L ALT/SGPT 31 Performed By: #### CMP, GFR, LIPID #### [place] [address] .GFR Collected: 07/06/2018 Status: F Source: [facility] 3:10 PM [facility] REPOSITORY TYPE CODE TESTS RESULT OUT OF REFERENCE UNITS RANGE LAB GFRAA(LOINC ml/min/1.73 ) sqm GFR 72 Vincentian Result Comment: GFR Population mean for , Non- Americans Ages 20-29 = 116 mL/min/1.73 sq.m. Ages 30-39 = 107 mL/min/1.73 sq.m. Ages 40-49 = 99 mL/min/1.73 sq.m. Ages 50-59 = 93 mL/min/1.73 sq.m. Ages 60-69 = 85 mL/min/1.73 sq.m. Ages 70+ = 75 mL/min/1.73 sq.m. Chronic Kidney Disease: Less than 60 mL/min/1.73 square meters End Stage Renal Disease: Less than 15 mL/min/1.73 square meters LAB GFRNO(LOINC) ml/min/1.73sqm GFR Non- 59 Result Comment: GFR Population mean for , Non- Americans Ages 20-29 = 116 mL/min/1.73 sq.m. Ages 30-39 = 107 mL/min/1.73 sq.m. Ages 40-49 = 99 mL/min/1.73 sq.m. Ages 50-59 = 93 mL/min/1.73 sq.m. Ages 60-69 = 85 mL/min/1.73 sq.m. Ages 70+ = 75 mL/min/1.73 sq.m. Chronic Kidney Disease: Less than 60 mL/min/1.73 square meters End Stage Renal Disease: Less than 15 mL/min/1.73 square meters Performed By: #### CMP, GFR, LIPID #### [address] [address] LIPID Collected: 07/06/2018 Status: F Source: TwoF 3:10 PM [facility] REPOS[facility]ORY TYPE CODE TESTS RESULT OUT OF REFERENCE UNITS RANGE LAB CHOL(LOINC 0-200 mg/dL ) Cholesterol 133 Result Comment: Cholesterol Reference Interval: Less than 200 Desirable 200-239 Borderline high risk 240 and above High risk LAB TRIG(LOINC) 0-150 mg/dL Triglycerides 79 Result Comment: Triglyceride Reference Interval: Less than 150 Normal 150-199 Borderline high risk 200-499 High risk 500 or higher Very high risk LAB HD(LOINC) 40-60 mg/dL HDL Cholesterol 42 LAB LDL(LOINC) 0-130 mg/dL LDL Cholesterol 75 Performed By: #### CMP, GFR, LIPID #### [address] [address] TROP Collected: 06/22/2018 Status: F Source: [facility] 5:36 AM [facility] REPOSITORY TYPE CODE TESTS RESULT OUT OF REFERENCE UNITS RANGE LAB TROP(LOINC) 0.000-0.040 ng/mL Troponin <0.020 Result Comment: Troponin I reference range: 0.00-0.040 ng/mL Negative and non-diagnostic. >0.040 ng/mL Consistent with cardiac damage, increased clinical risk and possibility of myocardial infarction. Serial measurements, a rise & fall in test results, clinical history, appropriate symptoms and/or ECG changes may help assess possibility of TN. *Other non-acute coronary syndrome conditions such as CHF, myocarditis, pulmonary emboli, sepsis and cardiac surgery could result in myocardial damage and increased troponin levels. Performed By: #### TROP #### [address] [address] TROP Collected: 06/21/2018 Status: F Source: [facility] 9:36 PM [facility] REPOSITORY TYPE CODE TESTS RESULT OUT OF REFERENCE UNITS RANGE LAB TROP(LOINC) 0.000-0.040 ng/mL Troponin <0.020 Result Comment: Troponin I reference range: 0.00-0.040 ng/mL Negative and non-diagnostic. >0.040 ng/mL Consistent with cardiac damage, increased clinical risk and possibility of myocardial infarction. Serial measurements, a rise & fall in test results, clinical history, appropriate symptoms and/or ECG changes may help assess possibility of TN. *Other non-acute coronary syndrome conditions such as CHF, myocarditis, pulmonary emboli, sepsis and cardiac surgery could result in myocardial damage and increased troponin levels. Performed By: #### TROP #### [place] [id number] XR CHEST 2 VIEWS Observed: 06/21/2018 Status: F Source: [facility] 2:19 PM [facility] REPOSITORY ORIGINAL XR CHEST 2 VIEWS CLINICAL STATEMENT: Chest pain COMPARISON: 08/20/2017 FINDINGS: There are midline sternotomy wires. The cardiomediastinal contours are stable. There is no consolidation, vascular congestion, pleural effusion, or pneumothorax. There are no acute abnormaliti es to osseous structures. Mild degenerative changes within the spine are noted. IMPRESSION: No acute radiographic findings. I have personally reviewed the images of this examination and agree with the resident's findings and interpretation. Interpreted By: Ousmane Crawford DO Preliminary Report By: Kerry Pascual MD Electronically Signed By: Ousamne Crawford DO Dictated Date: 06/21/2018 2:35:51 PM Prelim Date: 06/21/2018 2:36:52 PM Sign Date: 06/21/2018 2:48:09 PM DIMER Collected: 06/21/2018 Status: F Source: [facility] 1:40 PM [facility] REPOSITORY TYPE CODE TESTS RESULT OUT OF RANGE REFERENCE UNITS LAB DIMER(LOINC 0-230 ng/mL D-DU ) D-Dimer <200 Result Comment: The result of the D-Dimer test should be evaluated in the context of all the clinical and laboratory data available. In those instances where the laboratory result does not agree with the clinical evaluation, additional tests should be performed accordingly. If the D-Dimer result is used to exclude DVT or PE, the recommended cutoff value is less than 230 ng/mL. The D-Dimer result should not be used alone to rule in DVT/PE, but should be used in conjunction with a clinical pretest probability (PTP)assessment model to exclude venous thromboembolism (VTE) in outpatients suspected of deep venous thrombosis (DVT) and pulmonary embolism (PE). Performed By: #### DIMER #### [address] [address] CBC Collected: 06/21/2018 Status: F Source: [facility] 1:29 PM [facility] REPOSITORY TYPE CODE TESTS RESULT OUT OF REFERENCE UNITS RANGE LAB WBC(LOINC) 4.60-10.80 10 3/mcL WBC 5.40 LAB RBCCT(LOINC 4.04-6.13 10 6/mcL ) RBC 4.75 LAB HGB(LOINC) 14.0-18.0 G/dL Hgb 14.8 LAB HCT(LOINC) 42.0-52.0 % Hct 42.0 LAB MCV(LOINC) 80.0-94.0 fL MCV 88.4 LAB MCH(LOINC) 27.0-31.2 pg MCH 31.2 LAB MCHC(LOINC) 31.8-35.4 G/dL MCHC 35.3 LAB RDW(LOINC) 11.5-14.5 % RDW 13.7 LAB PLT(LOINC) 130-400 10 3/mcL Platelet 183 LAB MPV(LOINC) 7.4-10.4 fL MPV 8.1 Performed By: #### CBC, ADIFF, ANEU #### [address] [address] #### BMP, GFR, TROP #### [place] [id number] .AUTO DIFF Collected: 06/21/2018 Status: F Source: [facility] 1:29 PM [facility] REPOSITORY TYPE CODE TESTS RESULT OUT OF REFERENCE UNITS RANGE LAB GRACE(LOINC) 37.0-80.0 % Neutrophil % 72.8 LAB LYM(LOINC) 10.0-50.0 % Lymphocyte % 18.8 LAB MON(LOINC) 1.7-13.0 % Monocyte % 6.4 LAB EO(LOINC) 0.0-7.0 % Eosinophil % 1.5 LAB BAS(LOINC) 0.0-2.5 % Basophil % 0.5 LAB ABLYM(LOIN 0.77-3.85 10 3/mcL C) Lymphocyte, 1.00 Absolute LAB JEANMARIE(LOINC 0.15-1.00 10 3/mcL ) Monocyte, 0.30 Absolute LAB AEOS(LOINC 0.00-0.40 10 3/mcL ) Eosinophil, 0.10 Absolute LAB ABAS(LOINC 0.00-0.19 10 3/mcL ) Basophil, 0.00 Absolute Performed By: #### CBC, ADIFF, ANEU #### [place] [id number] #### BMP, GFR, TROP #### [place] [address] .NEUABS Collected: 06/21/2018 Status: F Source: [facility] 1:29 PM [facility] REPOSITORY TYPE CODE TESTS RESULT OUT OF REFERENCE UNITS RANGE LAB ANEU(LOINC) 2.85-6.16 10 3/mcL Neutrophil, 3.90 Absolute Performed By: #### CBC, ADIFF, ANEU #### [place] [id number] #### BMP, GFR, TROP #### [place] [address] BMP Collected: 06/21/2018 Status: F Source: [facility] 1:29 PM [facility] REPOSITORY TYPE CODE TESTS RESULT OUT OF REFERENCE UNITS RANGE LAB GLU(LOINC) 80-115 mg/dL Glucose High Level 117 LAB NA(LOINC) 136-145 mmol/L Sodium Level 142 LAB K(LOINC) 3.5-5.1 mmol/L Potassium Level 4.7 LAB CL(LOINC) 98-107 mmol/L Chloride 106 LAB CO2(LOINC) 23-31 mmol/L CO2 30 LAB EBAL(LOINC mEq/L ) Electrolyte Balance 6.0 LAB BUN(LOINC) 7-18 mg/dL BUN High 19 LAB CRE(LOINC) 0.70-1.30 mg/dL Creatinine Lvl (s) 1.00 LAB BC(LOINC) 7-27 ratio BUN/Creatinine 19 Ratio LAB CA(LOINC) 8.4-10.2 mg/dL Calcium Lvl 8.8 Performed By: #### CBC, ADIFF, ANEU #### [facility] [address] [place], [place] [address] #### BMP, GFR, TROP #### [address] [address] .GFR Collected: 06/21/2018 Status: F Source: [facility] 1:29 PM [facility] REPOS[facility] TYPE CODE TESTS RESULT OUT OF REFERENCE UNITS RANGE LAB GFRAA(LOINC ml/min/1.73 ) sqm GFR 91 Vincentian Result Comment: GFR Population mean for , Non- Americans Ages 20-29 = 116 mL/min/1.73 sq.m. Ages 30-39 = 107 mL/min/1.73 sq.m. Ages 40-49 = 99 mL/min/1.73 sq.m. Ages 50-59 = 93 mL/min/1.73 sq.m. Ages 60-69 = 85 mL/min/1.73 sq.m. Ages 70+ = 75 mL/min/1.73 sq.m. Chronic Kidney Disease: Less than 60 mL/min/1.73 square meters End Stage Renal Disease: Less than 15 mL/min/1.73 square meters LAB GFRNO(LOINC) ml/min/1.73sqm GFR Non- 75 Result Comment: GFR Population mean for , Non- Americans Ages 20-29 = 116 mL/min/1.73 sq.m. Ages 30-39 = 107 mL/min/1.73 sq.m. Ages 40-49 = 99 mL/min/1.73 sq.m. Ages 50-59 = 93 mL/min/1.73 sq.m. Ages 60-69 = 85 mL/min/1.73 sq.m. Ages 70+ = 75 mL/min/1.73 sq.m. Chronic Kidney Disease: Less than 60 mL/min/1.73 square meters End Stage Renal Disease: Less than 15 mL/min/1.73 square meters Performed By: #### CBC, ADIFF, ANEU #### [address] [address] #### BMP, GFR, TROP #### [address] [address] TROP Collected: 06/21/2018 Status: F Source: [facility] 1:29 PM [facility] REPOSITORY TYPE CODE TESTS RESULT OUT OF REFERENCE UNITS RANGE LAB TROP(LOINC) 0.000-0.040 ng/mL Troponin <0.020 Result Comment: Troponin I reference range: 0.00-0.040 ng/mL Negative and non-diagnostic. >0.040 ng/mL Consistent with cardiac damage, increased clinical risk and possibility of myocardial infarction. Serial measurements, a rise & fall in test results, clinical history, appropriate symptoms and/or ECG changes may help assess possibility of TN. *Other non-acute coronary syndrome conditions such as CHF, myocarditis, pulmonary emboli, sepsis and cardiac surgery could result in myocardial damage and increased troponin levels. Performed By: #### CBC, ADIFF, ANEU #### [address] [address] #### BMP, GFR, TROP #### [address] [address] PSAF Collected: 02/10/2018 Status: F Source: TwoF 5:09 PM [facility] REPOSITORY TYPE CODE TESTS RESULT OUT OF REFERENCE UNITS RANGE LAB PSA(LOINC) 0.00-2.59 ng/mL PSA, High Diagnostic 6.38 Result Comment: Total PSA test methodology used is the Electrochemiluminescence Immunoassay. For an individual patient, the significance of a PSA level should be interpreted in a broad clinical context, including age, race, family history, digital rectal exam, prostate size, results of prior testing (prostate biopsy, free PSA, PCA3), and use of 5-alpha reductase inhibitors. Considering the high incidence of asymptomatic cancer in the general population that may not pose an ultimate risk to a patient, the decision to recommend urological evaluation or prostate biopsy should be individualized after consideration of all these factors. REFERENCE: Mariana Holliday M.D., M.P.H., Laurent Jose M.D., Ph.D., Armen Salas M.D., Karin Hanson, M.P.H., Jammie Quan Sc.D. Effect of Verification Bias on Screening for Prostate Cancer by Measurement of Prostatic Specific Antigen. N Engl J Med 2003,349:335-42. Performed By: [place] [address] Quarry Boss: Perla Link M.D. CLIA#: [id number] Phone#: LAB PSAPER([facility]) % PSA, % Free 17 Result Comment: Less than 11% suggestive of prostate cancer. Greater than 23% suggestive of benign condition. Performed By: [place] [address] Quarry Boss: Perla Link M.D. CLIA#: [id number] Phone#: Performed By: #### PSATF #### [facility] [address] [address] ALLERGIES ALLERGIES DATE TYPE / CODE NAME / CODE REACTION SEVERITY SOURCE 11/05/2018 Drug amiodarone/F Vomiting Unknown [facility] Allergy/4160 [id number]([facility] [address](SNOMED NORM) Repository CT) ENCOUNTERS ENCOUNTERS ADMIT/DISCHARGE ACCOUNT NUMBER ADMITTING ENCOUNTER LOCATION SOURCE CLASS 11/11/2018/11/12/19 [id number] [facility] [address] ding:SDCRoom Repository : MS218 09/22/2018 [id number] [facility] ding:[facility]SPEC Repository 08/25/2018/08/25/20 [id number] Ambulatory HALEY Haley [address] [place] [address] ding:OLAB [facility] Repository 08/20/2018/08/20/20 [id number] Ambulatory HALEY Haley [address] [place] [address] ding:RAD [facility] Repository 08/17/2018/08/17/20 [id number] Ambulatory HALEY Haley [address] [place] [address] ding:RAD [facility] Repository 07/06/2018/07/10/20 [id number] Ambulatory BBuilding:OL [facility] Repository 06/21/2018/06/22/20 [id number] ROBB GALINDO., Ambulatory BBuilding:MS Haley Ross MD. MENG URRoom: Health 0233Bed: A [facility] Repository 02/10/2018/02/11/20 [id number] Ambulatory [address] ding:AB [facility] Repository PAYERS PAYERS ENCOUNTER GUARANTOR PAYER SUBSCRIBER SOURCE 11/11/2018 LUKE A Primary LUKE A Paz [id number] Insurance:MEDICARE TROYERDOB: [facility] [place], PART A [facility] [id number] [address]Hbh: Number: Repository [id number] (HP) Date:2018-10-26 11/11/2018 Secondary LUKE A Paz Insurance:UNITED TROYERDOB: Community [facility] [id number] Hospital COMPANYPolic Number: Repository [id number] Date: FAIZA PANTOJA [address]AK: 11/11/2018 Tertiary NOT GIVENUNK Paz Insurance:SELF PAY [facility] Number: Effective Repository Date:2018-10-26 09/22/2018 LUKE A Primary LUKE A Paz [id number] Insurance:MEDICARE TROYERDOB: [facility] [place], PART A [facility] [id number] [address]Xao: Number: Repository [id number] (HP) Date:2018-09-22 09/22/2018 Secondary LUKE A Paz Insurance:UNITED TROYERDOB: Community [employer] [id number] [facility] COMPANYPolicy Number: Repository [id number] Date: FAIZA PANTOJA [address]RE: 09/22/2018 Tertiary NOT GIVENUNK [place] Insurance:SELF PAY [facility] Number: Effective Repository Date:2018-09-22 08/25/2018 LUKE A Primary LUKE A [facility] TROYERDOB: Insurance:MEDICARE TROYERDOB: Foundation PART BPolicy Number: [id number] Repository [place], [id number] [address] [place] Date:2018-08-25 [place] [address]~[id number]@ [id number] [phone]: ([phone]) Ciara: Name:[facility] [phone] [facility] ()Tel: (000) () [address] [phone], 000-0000 () [place] [address]VS: 08/25/2018 Secondary LUKE A [facility] Insurance:[facility] TROYERDOB: Foundation INSURANCE [id number] Repository SECONDARYPolicy [address] [place] Number: [place] [id number] [address]Ijl: (330) Date:2018-08-25 [id number] ()Tel: (000) Name:[id number] CHRISSKYE 000-0000 (WP) [place] [address]KO: 08/20/2018 LUKE A Primary LUKE A [facility] TROYERDOB: Insurance:MEDICARE TROYERDOB: [facility] PART BPolicy Number: [id number] Repository [place] RDDALTDA[place], [id number] [address] [place] Date:2018-08-06 [place] [address]~[id number]@ [id number] [phone]: ([phone]) Ciara: Name:[facility] [phone] Administrators LLCPO (HP)Tel: (000) (HP) [address] [phone], 000-0000 (WP) [place] [address]BP: 08/20/2018 Secondary LUKE A [facility] Insurance:[facility] TROYERDOB: Foundation INSURANCE [id number] Repository SECONDARYPolicy [address] [place] Number: RUTH PRATT [id number]: (330) Date:2018-08-06 [phone] (HP)Tel: (000) Name:C331Annabel MCKENZIE 000-0000 (WP) [place] [address]CA: 08/17/2018 LUKE A Primary TOWSON A [facility] TROYERDOB: Insurance:MEDICARE TROYERDOB: [facility] PART BPolicy Number: [id number] Repository [place] [address]JE[place], [id number] [address] [place] Date:2018-08-17 - [place] [address]~[id number]@ [id number] [phone]: ([phone]) Ciara: Name:[facility]WT[facility]ella [phone] Administrators LLCPO (HP)Tel: (000) (HP) [address] [phone], 000-0000 (WP) [place] [address]WF: 08/17/2018 Secondary LUKE A [facility] Insurance:[facility] TROYERDOB: Foundation INSURANCE [id number] Repository SECONDARYPolicy [address] [place] Number: [place] [id number] [id number]: (330) Date:2018-08-17 [id number] ()Tel: (000) Name:Hetal31Annabel MCKENZIE 000-0000 (WP) FAIZA SEXTON [address]ES: 07/06/2018 LUKE A Primary TOWSON [facility] TROYERDOB: Insurance:MEDICARE TROYERDOB: [facility] PART BPolicy Number: [id number] Repository [place], [id number] [address] [place] [address]Tqd: Date:2017-05-03 - RUTH PRATT [id number]: (330) (HP) Name:[facility] 466Josue Administrators LLCPO (HP)Tel: (000) [address] [phone], 000-0000 (WP) [place] [address]KL: 07/06/2018 Secondary [facility] Insurance:[facility] TROYERDOB: [facility] INSURANCE [id number] Repository SECONDARYPolicy [address] [place] Number: [place] [id number]: (330) Date:2018-07-0631Plan ()Tel: (000) Name:[id number] MAGALY 000-0000 (WP) SUKHJINDERPrestonFAIZA [address]LX: 06/21/2018 LUKE A [facility] TROYERDOB: Insurance:MEDICARE TROYERDOB: [facility] PART BPolicy Number: [id number] Repository [place], [id number] [address] [place] [address]Uok: Date:2018-06-21 - RUTH PRATT [id number]: (330) (HP) Name:[facility] 466Josue Administrators LLCPO (HP)Tel: (000) [address] [address]Uwvnpgvro, 000-0000 (WP) [place] [address]YY: 06/21/2018 Secondary [facility] Insurance:[facility] TROYERDOB: [facility] INSURANCE [id number] Repository SECONDARYPolicy [address] Number: [place] [id number]: (330) Date:2018-06-2131Plan (HP)Tel: (000) Name:C331Annabel MCKENZIE 000-0000 (WP) FAIZA SEXTON [address]DR: 02/10/2018 [facility] TROYERDOB: Insurance:MEDICARE TROYERDOB: [facility] [id number] PART BPolicy Number: [id number] Repository [place], [id number] [address] [place] [address]Wbg: Date:2018-02-10 - JUWANJEANNETTE [place] [phone] [id number]: (330) (HP)Tel: (000) Name:[facility] 000-0000 (WP) Administrators LLCPO (HP)Tel: (000) [address] [phone], 000-0000 (WP) [place] [address]ZK: 02/10/2018 Secondary [facility] Insurance:MISC TROYERDOB: [facility] INSURANCE [id number] Repository SECONDARYPolicy [address] Number: [place] [id number]: (330) Date:2018-02-10 - 31Plan (HP)Tel: (000) Name:C331Annabel MCKENZIE 000-0000 (WP) FAIZA SEXTON [address]BG:
== END 2018-11-12 15:19 | disposition home or self-care (01) ==
LOC: SDC 05:23 → AC 05:24 → MS2 12:01
PROVIDERS: Anesthesiology; Family Provider Preventive Medicine Occupational Medicine; PCP Preventive Medicine Occupational Medicine; Referring Provider Urology; Visit Provider Urology
PROC: 0VT04ZZ Resection of Prostate, Percutaneous Endoscopic Approach (ICD-10-PCS; CPT 55866; principal; 2018-11-11 07:10)
DX: C61 Malignant neoplasm of prostate (principal); E11.9 Type 2 diabetes mellitus without complications; Z79.82 Long term (current) use of aspirin; Z79.899 Other long term (current) drug therapy; I25.10 Atherosclerotic heart disease of native coronary artery without angina pectoris; Z95.1 Presence of aortocoronary bypass graft; I10 Essential (primary) hypertension; I25.2 Old myocardial infarction; Z79.84 Long term (current) use of oral hypoglycemic drugs; E78.5 Hyperlipidemia, unspecified
CPT/HCPCS: 00920; 55866; 36415; 80048; 82962; 83036; 85027; 86850; 86900; 88309; 88341; 88342; 93005; J7030; J7120; A4216; J2405; J3490

== ENCOUNTER 2018-11-24 10:26 | Observation (INO) | payer MEDICARE, OTHER, SELFPAY ==
[2018-11-11 14:23] VITALS: BMI 28.8
[2018-11-24 10:32] VITALS: BMI 28.1
--- NOTE | 2018-11-24 10:36 | CT_ITS ---
STUDY: CT ABDOMEN AND PELVIS WITH CONTRAST REASON FOR EXAM: Male, 68 years old. Pelvic pain. Recent prostatectomy due to prostate cancer. RADIATION DOSAGE (If Supplied By Facility): CTDIvol = ( 14.37 ) mGy, DLP = ( 994.68 ) mGycm TECHNIQUE: Transaxial images were obtained from the dome of the diaphragm to the symphysis pubis without oral contrast. 100CC ml of Isovue 300 contrast was administered. Sagittal and coronal images were reconstructed. Individualized dose optimization techniques were used for this CT. COMPARISON: None. FINDINGS: Minimal degree of increased markings with coalescence at the left lung base just above the atelectasis. Coronary artery calcification. Normal liver. Normal gallbladder and extrahepatic biliary system. There is mild splenomegaly. Normal pancreas. Normal bilateral adrenal glands. Normal right kidney. There is a 4.7 mm calculus in the lower pole calyx of the left kidney. 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 Small amount of fluid is seen in the paracolic gutters bilaterally. Normal visualized stomach. Normal small intestine. Normal colon. The appendix is visualized and appears normal. There is diffuse atherosclerotic calcification of the abdominal aorta and major visceral branches, without a demonstrated aneurysm. Normal inferior vena cava. Normal retroperitoneum. A Hanks catheter is seen within the urinary bladder. The urinary bladder is empty. There is thickening of the bladder wall. Postoperative changes are seen within the pelvic fat in keeping with prior prostatectomy. Small amount of fluid is seen in the pelvis. There is a small umbilical hernia containing fat. Small bilateral inguinal hernias containing fat. There are mild degenerative changes of the visualized lumbar spine. CT/Abdomen/Pelvis W IV Cont ONLY IMPRESSION: Status post prostatectomy with post operative changes seen in the pelvis. Small amount of free fluid in the pelvis as well as findings in the pelvis suggestive of post operative changes. Small amount of fluid in the paracolic gutters bilaterally. Left basilar atelectasis. Electronically Signed: Jan Jerry MD at 15:43 EST , Service support ,
[2018-11-24 11:10] VITALS: BP 158/78; PULSE 55; RESP 16; TEMP 36.6; O2SAT 97
[2018-11-24] MEDS: 0.9% Normal Saline 1,000 ML 125 ML IV ×2 (11:24→19:49)
[2018-11-24] MEDS: Ketorolac 15 MG/ML Vial IV ×2 (11:24→20:48)
[2018-11-24 11:36] LABS: Hematocrit 33.5 % (40-54); Hemoglobin 11.4 g/dl (13.0-16.5); Mean Corpuscular Hgb 30.6 pg (27.0-32.0); Mean Corpuscular Volume 90.1 fL (80-94); Mean Platelet Vol. 9.6 fl (6.2-12.0); Platelet Count 198 K/mm3 (150-450); RBC Distribution Width CV 13.6 % (11.6-14.6); RBC Distribution Width SD 44.3 fl (35.1-43.9); Red Blood Count 3.72 M/mm3 (4.6-6.2); Scan Indicated on CBC? Y/N NO
[2018-11-24 12:26] LABS: Anion Gap 7 (5-15); BUN 17 mg/dL (7-18); BUN/Creat Ratio 17.8 RATIO (10-20); Calcium,Total 7.9 mg/dL (8.5-10.1); Chloride 104 mmol/L (98-107); Creatinine, Serum 0.95 mg/dL (0.70-1.30); EST Glomerular Filtration Rate 84 mL/min (>60); Est Glom Filt Rate - Afr Amer 101 mL/min (>60); Estimated Creatinine Clearance 76.49 ml/min; Glucose 146 mg/dL (74-106); Potassium 4.4 mmol/L (3.5-5.1); Sodium Level 135 mmol/L (136-145)
[2018-11-24] MEDS: Cefazolin 1 GM/50 ML BAG IV ×2 (14:02→21:39)
[2018-11-24 14:04] VITALS: BP 131/75; PULSE 64; RESP 16; TEMP 36.8; O2SAT 97
[2018-11-24] MEDS: 0.9% NaCl Peripheral Flush Adult/Peds IV ×2 (15:52→20:48)
[2018-11-24 19:47] VITALS: BP 125/56; PULSE 67; RESP 16; TEMP 37.1; O2SAT 96
[2018-11-25 02:08] VITALS: BP 128/66; PULSE 70; RESP 16; TEMP 36.9; O2SAT 96
[2018-11-25] MEDS: 0.9% Normal Saline 1,000 ML 125 ML IV (04:10)
[2018-11-25] MEDS: Cefazolin 1 GM/50 ML BAG IV (05:47)
--- NOTE | 2018-11-25 07:25 | PCM.HP.STD ---
History of Present Illness Date of Admission: 11/24/18 Chief Complaint: abd pain The patient is a 68 year old Male s/p radical prostatectomy parker removed and had severe abd pain Past Medical History Allergies amiodarone Adverse Reaction (Verified 11/05/18 11:17) Vomiting Home Medications: Ambulatory Orders Medication Instructions Recorded Aspirin [Aspir 81] 81 mg PO DAILY 11/05/18 Atorvastatin Calcium [Lipitor] 40 mg PO QHS 11/05/18 Furosemide [Lasix] 20 mg PO DAILY PRN 11/05/18 Garlic 1 each PO DAILY 11/05/18 Lactobacillus Combo No.11 1 each PO DAILY 11/05/18 [Probiotic] Lisinopril [Zestril] 2.5 mg PO DAILY 11/05/18 Metoprolol Tartrate [Lopressor 12.5 mg PO BID 11/05/18 (Beta Wallace)] Multivitamin [Daily Multiple 1 each PO DAILY 11/05/18 Vitamin] Sitagliptin Phosphate [Januvia] 100 mg PO DAILY 11/05/18 Tamsulosin HCl [Flomax] 0.4 mg PO DAILY 11/05/18 Docusate Sodium [Colace] 100 mg PO BID 11/24/18 Smoking Status: Never smoker VTE Information - Inpt Only VTE Present on Admission: No - Physical Exam General: Alert, Oriented x3, Cooperative HEENT: Atraumatic, PERRLA, EOMI, Normocephalic Neck: Supple, No JVD, Negative Carotid Bruits Lungs: Clear to auscultation, Normal air movement Cardiovascular: Regular rate, No murmurs Abdomen: Bowel Sounds Present, Soft, Non Tender Extremities: No edema, Capillary Refill Less than 3 Seconds Skin: No rashes, No breakdown Musculoskeletal: No Tenderness to Palpation of Joints or Extremities Neurological: Cranial nerves II-XII grossly intact Psych/Mental Status: Normal Affect, Appropriate Vital Signs Temp Pulse Resp BP Pulse Ox 98.4 F 70 16 128/66 H 96 11/25/18 02:08 11/25/18 02:08 11/25/18 02:08 11/25/18 02:08 11/25/18 02:08 Oxygen Delivery Method Room Air Weight: 86.4 kg Body Mass Index (BMI) 28.1 Finger Stick Blood Glucose 208 Intake and Output for Last 24 Hours 11/23/18 11/24/18 11/25/18 23:59 23:59 23:59 Intake Total 1910 Output Total 1999 4400 / 4400 Balance -89 / -89 -2372 / -2372 Laboratory Tests Past 24 Hrs 11/24/18 11/24/18 11:26 11:26 WBC 9.0 RBC 3.72 L Hgb 11.4 L Hct 33.5 L MCV 90.1 MCH 30.6 MCHC 34.0 RDW 13.6 RDW Differential 44.3 H Plt Count 198 MPV 9.6 Sodium 135 L Potassium 4.4 Chloride 104 Carbon Dioxide 24.0 Anion Gap 7 BUN 17 Creatinine 0.95 Estim Creat Clear Calc 76.49 Est GFR (MDRD) Af Amer 101 Est GFR (MDRD) Non-Af 84 BUN/Creatinine Ratio 17.8 Glucose 146 H Calcium 7.9 L Assessment/Plan admitted for abd pain plan to do ct scan.
--- NOTE | 2018-11-25 07:29 | DCINST_ITS ---
Discharge Diet: Light diet - advance as tolerated Discharge Activity: Return to Normal Activity, May Not Drive Lifting Restrictions: no lifting. Call your doctor if your incision/area has: Continuous Slow Oozing, Sudden Increased Bleeding, Increased Pain/ Swelling, Increased Redness, Foul Smelling Discharge, Swelling at the incision site Catheter: Hanks to leg bag, Hanks to large bag Drain: [place] Allergies/Adverse Reactions: Allergies amiodarone Adverse Reaction (Verified 11/05/18 11:17) Vomiting Medications to take at Discharge Aspirin [Aspir 81] 81 mg PO DAILY 11/05/18 Atorvastatin Calcium [Lipitor] 40 mg PO QHS 11/05/18 Furosemide [Lasix] 20 mg PO DAILY PRN 11/05/18 Garlic 1 each PO DAILY 11/05/18 Lactobacillus Combo No.11 [Probiotic] 1 each PO DAILY 11/05/18 Lisinopril [Zestril] 2.5 mg PO DAILY 11/05/18 Metoprolol Tartrate [Lopressor (Beta Wallace)] 12.5 mg PO BID 11/05/18 Multivitamin [Daily Multiple Vitamin] 1 each PO DAILY 11/05/18 Sitagliptin Phosphate [Januvia] 100 mg PO DAILY 11/05/18 Tamsulosin HCl [Flomax] 0.4 mg PO DAILY 11/05/18 Docusate Sodium [Colace] 100 mg PO BID 11/24/18 Primary Care Physician: Tom Nath DO [Primary Care Provider] - Test Results: Test results from this visit will be discussed in further detail at your follow- up appointment, if applicable. Please Follow Up With: Chandan Clifford MD When: call for appt next for cystogram and office visit.
[2018-11-25 07:40] VITALS: BP 146/80; PULSE 67; RESP 16; TEMP 36.3; O2SAT 94
[2018-11-25 11:35] VITALS: BP 133/67; PULSE 60; RESP 16; TEMP 36.9; O2SAT 95
--- NOTE | 2018-11-25 12:45 | NURSING ---
student nurses charting reviewed for documentation purposes.
== END 2018-11-25 10:29 | disposition home or self-care (01) ==
PROVIDERS: Admitting Provider Urology; Family Provider Preventive Medicine Occupational Medicine; PCP Preventive Medicine Occupational Medicine; Referring Provider Urology; Visit Provider Urology
DX: R10.9 Unspecified abdominal pain (principal); Z79.82 Long term (current) use of aspirin; Z90.79 Acquired absence of other genital organ(s); Z98.890 Other specified postprocedural states; C61 Malignant neoplasm of prostate
CPT/HCPCS: 36415; 74177; 80048; 85027; 96361; 96365; 96366; 96375; 96376; 99218; J7030; Q9967; A4216; G0378; G0379

== ENCOUNTER → 2018-12-03 09:45 | Outpatient (CLI) | payer MEDICARE, OTHER, SELFPAY ==
[2018-11-24 10:32] VITALS: BMI 28.1
--- NOTE | 2018-12-03 09:49 | RAD_ITS ---
CLINICAL HISTORY: Male, 68 years old. Prior prostatectomy. Assessment for bladder leak. PROCEDURE: Cystogram. FLUOROSCOPY TIME (if supplied): (0:27) minutes/seconds. 3 images were obtained. 100 mL of contrast installed into the bladder in a retrograde fashion through the indwelling Hanks catheter. The radiologist installed the contrast into the bladder. TECHNIQUE: (All elements of maximal sterile barrier technique followed, including US elements as applicable) 100 cc of contrast was injected into the bladder via the Hanks catheter. The bladder is small in capacity. There is no evidence of leakage. RAD/Cystography min 3 Views IMPRESSION: No evidence of bladder leak. Electronically Signed: Jan Jerry MD at 10:52 EST , Service support ,
== END ==
PROVIDERS: Family Provider Preventive Medicine Occupational Medicine; PCP Preventive Medicine Occupational Medicine; Referring Provider Urology; Visit Provider Urology
DX: Z90.79 Acquired absence of other genital organ(s) (principal)
CPT/HCPCS: 51600; 74430; Q9965

== ENCOUNTER → 2019-02-25 | Outpatient (CLI) | payer MEDICARE, OTHER, SELFPAY ==
[2018-11-24 10:32] VITALS: BMI 28.1
[2019-02-25 16:34] LABS: PSA,Total- Diagnostic < 0.01 ng/mL (0.0-4.0)
== END | disposition home or self-care (01) ==
LOC: LAB 15:43
PROVIDERS: Family Provider Preventive Medicine Occupational Medicine; PCP Preventive Medicine Occupational Medicine; Referring Provider Urology; Visit Provider Urology
DX: C61 Malignant neoplasm of prostate (principal)
CPT/HCPCS: 36415; 84153

== ENCOUNTER → 2019-06-03 | Outpatient (CLI) | payer MEDICARE, OTHER, SELFPAY ==
[2018-11-24 10:32] VITALS: BMI 28.1
[2019-06-03 16:59] LABS: PSA,Total- Diagnostic < 0.01 ng/mL (0.0-4.0)
== END | disposition home or self-care (01) ==
LOC: LAB 16:15
PROVIDERS: Family Provider Preventive Medicine Occupational Medicine; PCP Preventive Medicine Occupational Medicine; Referring Provider Urology; Visit Provider Urology
DX: C61 Malignant neoplasm of prostate (principal)
CPT/HCPCS: 36415; 84153

== ENCOUNTER → 2019-12-02 14:26 | Outpatient (CLI) | payer MEDICARE, OTHER, SELFPAY ==
[2018-11-24 10:32] VITALS: BMI 28.1
[2019-12-02 16:15] LABS: PSA,Total- Diagnostic < 0.01 ng/mL (0.0-4.0)
== END ==
PROVIDERS: PCP Preventive Medicine Occupational Medicine; Referring Provider Urology; Visit Provider Urology
DX: C61 Malignant neoplasm of prostate (principal)
CPT/HCPCS: 36415; 84153

== ENCOUNTER → 2020-06-01 16:00 | Outpatient (CLI) | payer MEDICARE, OTHER, SELFPAY ==
[2018-11-24 10:32] VITALS: BMI 28.1
[2020-06-01 17:09] LABS: PSA,Total- Diagnostic < 0.01 ng/mL (0.0-4.0)
== END ==
PROVIDERS: PCP Preventive Medicine Occupational Medicine; Referring Provider Urology; Visit Provider Urology
DX: C61 Malignant neoplasm of prostate (principal)
CPT/HCPCS: 84153

== ENCOUNTER → 2020-11-21 06:55 | Outpatient (CLI) | payer MEDICARE, OTHER, SELFPAY ==
[2020-11-06 15:35] VITALS: BMI 28.0
--- NOTE | 2020-11-21 07:00 | ECHOD_ITS ---
Reason For Study: S/P CABG Procedure This was a 2D Doppler, Color Flow transthoracic echocardiogram. Bubble Study Performed. Exam performed in department. Left Ventricle Normal LV size. Left ventricular systolic function is normal. The estimated ejection fraction is 60 %. Diastolic function is indeterminate. No regional wall motion abnormalities noted. Right Ventricle Normal RV size. Normal systolic function. Atria The left atrium is mildly enlarged. The right atrium is mildly enlarged. No doppler evidence for ASD. Bubble contrast study negative for right to left interatrial shunt. Mitral Valve There is no mitral annular calcification. Normal mitral valve. Mild (1+) mitral valve insufficiency. Tricuspid Valve Normal tricuspid valve. Trivial tricuspid valve insufficiency. Unable to estimate RV systolic pressure due to insufficient tricuspid regurgitant envelope. Aortic Valve Trisinus/trileaflet aortic valve. Mild focal aortic valve calcification. Trivial aortic valve insufficiency. Pulmonic Valve The pulmonic valve is not well visualized. No pulmonic valve insufficiency. Great Vessels Normal sized aortic root. Pericardium/Pleural No pericardial effusion. Medication 22 gauge I.V. with prn adaptor inserted into right arm. Performed a rapid injection of agitated mix of 9 cc saline and 1cc air to assess for atrial septal defect. MMode/2D Measurements & Calculations LVIDd: 4.8 cm IVSd: 0.99 cm Ao root diam: 3.6 cm LVIDs: 2.7 cm LVPWd: 1.2 cm LA dimension: 3.9 cm RVDd: 4.1 cm FS: 44.5 % LAV(MOD-bp): 59.6 ml LVAd ap4: 28.5 cm2 SV(MOD-sp4): 47.9 ml LAV(MOD-bp) Indexed: 29.5 ml/m2 EDV(MOD-sp4): 83.5 ml LAV(MOD-sp2): 64.1 ml EDV(sp4-el): 87.1 ml LAV(MOD-sp4): 54.7 ml LVAs ap4: 17.1 cm2 ESV(MOD-sp4): 35.5 ml ESV(sp4-el): 34.6 ml EF(MOD-sp4): 57.4 % EF(sp4-el): 60.3 % SV(sp4-el): 52.5 ml LA A4 area: 20.2 cm2 RA A4 area: 20.5 cm2 Time Measurements MV dec time: 0.18 sec Doppler Measurements & Calculations MV E max karthik: 88.7 cm/sec Lat Peak E' Karthik: 11.7 cm/sec Med Peak E' Karthik: 5.9 cm/sec MV A max karthik: 70.6 cm/sec E/E' lat: 7.6 E/E' med: 15.1 MV E/A: 1.3 MV V2 max: 88.0 cm/sec MV P1/2t max karthik: 88.0 cm/sec Ao V2 max: 118.4 cm/sec MV max P.1 mmHg MV P1/2t: 80.1 msec Ao max P.6 mmHg MV V2 mean: 51.8 cm/sec MV mean P.2 mmHg MV dec slope: 321.7 cm/sec2 MV V2 VTI: 22.3 cm MVA(P1/2t): 2.7 cm2 AI max karthik: 387.0 cm/sec LV V1 max: 102.7 cm/sec PA V2 max: 177.2 cm/sec AI max P.9 mmHg LV V1 max P.2 mmHg AI dec slope: 147.2 cm/sec2 AI P1/2t: 769.9 msec Interpretation Summary Left ventricular systolic function is normal. The estimated ejection fraction is 60 %. The left atrium is mildly enlarged. The right atrium is mildly enlarged. Mild (1+) mitral valve insufficiency. Trivial tricuspid valve insufficiency. Mild focal aortic valve calcification. Trivial aortic valve insufficiency. No pulmonic valve insufficiency. Unable to estimate RV systolic pressure due to insufficient tricuspid regurgitant envelope. Diastolic function is indeterminate. Bubble contrast study negative for right to left interatrial shunt. Ordering Physician: Julius Hernández Referring Physician: Tom Nath Performed By: Eduard Callejas RCS
--- NOTE | 2020-11-21 08:53 | STRESSREP ---
Stress Test Report Date: Procedure: Exercise tolerance test/imaging study Indications: Chest pain; CAD; CABG Consent: Per the patient Procedure: The patient exercised on a Titus protocol for 10 minutes and 30 seconds completing Stage III and 1 minute and 30 seconds of Stage IV achieving a peak heart rate of 150 bpm (98% predicted maximal heart rate) with a peak blood pressure 160/88 mmHg and a peak MET capacity of 12 METs. The baseline ECG demonstrated normal sinus rhythm. The peak exercise ECG demonstrated somatic/motion artifact with no obvious ECG changes. There was a isolated PVC during exercise and a rare PVC during recovery. The functional capacity was considered. There was no complaint of chest discomfort during exercise or recovery. The examination was discontinued secondary to fatigue. Impression: 1. Technically adequate (percent predicted maximal heart rate greater than 85%) exercise tolerance test 2. Peak exercise ECG with somatic/motion artifact with no obvious ECG changes 3. There was an isolated PVC during exercise and a rare PVC during recovery 4. Nuclear images pending Myocardial perfusion imaging study: Technique: The patient was injected with 10.6 mCi of technetium 99m Cardiolite and subsequently rest SPECT Cardiolite nuclear imaging was obtained in the horizontal long, vertical long, and short axis views. The patient exercised on a Titus protocol for 10 minutes and 30 seconds completing Stage III and 1 minute and 30 seconds of Stage IV achieving a peak heart rate of 150 bpm (98% predicted maximal heart rate) with a peak blood pressure 160/88 mmHg and a peak MET capacity of 12 METs. The patient was injected with 32.0 mCi of technetium 99m Cardiolite and subsequently stress SPECT Cardiolite nuclear imaging was obtained in the horizontal long, vertical long, and short axis views. A gated Cardiolite study at peak stress was obtained. Interpretation: Rest and stress SPECT Cardiolite nuclear imaging status post realignment, normalization, and attenuation correction, demonstrates at rest the appearance of a small area of subtle diminished tracer uptake near the apical segments which appears to improve/normalize following stress. There is end systolic thickening and brightening. The gated Cardiolite study demonstrates myocardial thickening and inward wall motion. The reported LVEF is 67%. Impression: 1. Rest and stress SPECT Cardiolite nuclear imaging demonstrate myocardial perfusion changes at rest which appear to improve/normalize following stress appearing compatible shifting soft tissue attenuation/artifact with no myocardial perfusion changes considered diagnostic for associated stress-induced myocardial ischemia. 2. The gated Cardiolite study reports an LVEF of 67%. This note was generated with [employer] software. It may contain incorrect words, spelling, and punctuation that were not noted in checking the note before signing.
== END ==
PROVIDERS: PCP Preventive Medicine Occupational Medicine; Referring Provider Internal Medicine Cardiovascular Disease; Visit Provider Internal Medicine Cardiovascular Disease
DX: I25.10 Atherosclerotic heart disease of native coronary artery without angina pectoris (principal); Z95.1 Presence of aortocoronary bypass graft; E78.00 Pure hypercholesterolemia, unspecified; I10 Essential (primary) hypertension
CPT/HCPCS: 78452; 93017; 93306; A9500; A4216

== ENCOUNTER → 2020-12-08 10:48 | Outpatient (CLI) | payer MEDICARE, OTHER, SELFPAY ==
[2020-11-06 15:35] VITALS: BMI 28.0
[2020-12-08 11:51] LABS: PSA,Total- Diagnostic < 0.01 ng/mL (0.0-4.0)
== END ==
PROVIDERS: PCP Preventive Medicine Occupational Medicine; Referring Provider Urology; Visit Provider Urology
DX: C61 Malignant neoplasm of prostate (principal)
CPT/HCPCS: 36415; 84153

== ENCOUNTER → 2021-07-03 16:28 | Outpatient (CLI) | payer MEDICARE, OTHER, SELFPAY ==
[2021-07-03 17:38] LABS: PSA,Total- Diagnostic < 0.01 ng/mL (0.0-4.0)
== END ==
PROVIDERS: PCP Preventive Medicine Occupational Medicine; Referring Provider Urology; Visit Provider Urology
DX: C61 Malignant neoplasm of prostate (principal)
CPT/HCPCS: 36415; 84153

== ENCOUNTER 2021-12-03 09:23 | Outpatient (CLI) | payer MEDICARE, OTHER, SELFPAY ==
[2021-12-03 11:04] LABS: AST(SGOT) 17 U/L (15-37); Alanine Aminotransfer ALT/SGPT 34 U/L (16-61); Albumin, Serum 3.9 g/dL (3.2-5.0); Alkaline Phosphatase 48 U/L (45-117); Bilirubin, Direct 0.19 mg/dL (0.00-0.30); Cholesterol 112 mg/dL (200); Globulin 2.9 g/dL (2.2-4.2); High Density Lipoprotein 45 mg/dL; Protein, Total 6.8 g/dL (6.4-8.2); Triglycerides 57 mg/dL; Very Low Density Lipoprotein 11 mg/dL (5-40)
== END 2021-12-03 23:59 | disposition home or self-care (01) ==
LOC: LAB 09:25
PROVIDERS: PCP Preventive Medicine Occupational Medicine; Referring Provider Internal Medicine Cardiovascular Disease; Visit Provider Internal Medicine Cardiovascular Disease
DX: E78.00 Pure hypercholesterolemia, unspecified (principal)
CPT/HCPCS: 36415; 80061; 80076

== ENCOUNTER 2021-12-06 06:12 | Outpatient (CLI) | payer MEDICARE, OTHER, SELFPAY ==
--- NOTE | 2021-12-06 13:14 | STRESSREP ---
Stress Test Report Date: 12-06-2021 Procedure: Exercise tolerance test/imaging study Indications: Chest pain; CAD; CABG Consent: Per the patient Procedure: The patient exercised on a Titus protocol for 10 minutes completing Stage III and 1 minute of Stage IV achieving a peak heart rate of 146 bpm (96% predicted maximal heart rate) with a peak blood pressure 190/88 mmHg and a peak MET capacity of 13 METs. The baseline ECG demonstrated normal sinus rhythm. The peak exercise ECG demonstrated approximately 0.5 to 1.[address] segment depression in leads V4 through V6 with resolution towards baseline beginning less than 1 minute in recovery. There was a rare PVC during exercise. The functional capacity was considered good. There was no complaint of chest discomfort during exercise or recovery. The examination was discontinued secondary to dyspnea. Impression: 1. Technically adequate (percent predicted maximal heart rate greater than 85%) exercise tolerance test 2. Peak exercise ECG with approximately 0.[address] segment depression in leads V4 through V6 with resolution towards baseline beginning less than 1 minute in recovery 3. There was a rare PVC during exercise 4. Nuclear images pending Myocardial perfusion imaging study: Technique: The patient was injected with 11.9 mCi of technetium 99m Cardiolite and subsequently rest SPECT Cardiolite nuclear imaging was obtained in the horizontal long, vertical long, and short axis views. The patient exercised on a Titus protocol for 10 minutes completing Stage III and 1 minute of Stage IV achieving a peak heart rate of 146 bpm (96% predicted maximal heart rate) with a peak blood pressure 190/88 mmHg and a peak MET capacity of 13 METs. The patient was injected with 34.8 mCi of technetium 99m Cardiolite and subsequently stress SPECT Cardiolite nuclear imaging was obtained in the horizontal long, vertical long, and short axis views. A gated Cardiolite study at peak stress was obtained. Interpretation: Rest and stress SPECT Cardiolite nuclear imaging status post realignment, normalization, and attenuation correction, demonstrates the appearance of relative uniform tracer uptake and myocardial perfusion appearing within normal limits. There is end systolic thickening and brightening. The gated Cardiolite study demonstrates myocardial thickening and inward wall motion. The reported LVEF is 67%. Impression: 1. Rest and stress SPECT Cardiolite nuclear imaging demonstrate relative uniform tracer uptake and myocardial perfusion appearing within normal limits. 2. The gated Cardiolite study reports an LVEF of 67%. This note was generated with Dragon dictation software. It may contain incorrect words, spelling, and punctuation that were not noted in checking the note before signing.
== END 2021-12-06 23:59 | disposition home or self-care (01) ==
LOC: CVS 06:13
PROVIDERS: PCP Preventive Medicine Occupational Medicine; Referring Provider Internal Medicine Cardiovascular Disease; Visit Provider Internal Medicine Cardiovascular Disease
DX: Z95.1 Presence of aortocoronary bypass graft (principal)
CPT/HCPCS: 78452; 93017; A9500; A4216

== ENCOUNTER → 2022-05-31 | Outpatient (CLI) | payer MEDICARE, OTHER, SELFPAY ==
[2022-05-31 07:34] LABS: AST(SGOT) 17 U/L (15-37); Alanine Aminotransfer ALT/SGPT 35 U/L (16-61); Albumin, Serum 3.5 g/dL (3.2-5.0); Alkaline Phosphatase 45 U/L (45-117); Bilirubin, Direct 0.13 mg/dL (0.00-0.30); Cholesterol 145 mg/dL (200); Globulin 3.2 g/dL (2.2-4.2); High Density Lipoprotein 41 mg/dL; Protein, Total 6.7 g/dL (6.4-8.2); Triglycerides 90 mg/dL; Very Low Density Lipoprotein 18 mg/dL (5-40)
== END | disposition home or self-care (01) ==
LOC: LAB 06:11
PROVIDERS: PCP Preventive Medicine Occupational Medicine; Visit Provider Internal Medicine Cardiovascular Disease
DX: E78.00 Pure hypercholesterolemia, unspecified (principal)
CPT/HCPCS: 36415; 80061; 80076

== ENCOUNTER → 2022-06-12 | Outpatient (CLI) | payer MEDICARE, OTHER, SELFPAY | END | disposition home or self-care (01) | LOC: PSN 09:02 | PROVIDERS: PCP Preventive Medicine Occupational Medicine; Referring Provider Physician Assistant Medical; Visit Provider Physician Assistant Medical | DX: R00.2 Palpitations (principal) | CPT/HCPCS: 93225; 93226 ==

== ENCOUNTER → 2022-11-05 | Outpatient (CLI) | payer MEDICARE, OTHER, SELFPAY ==
[2022-11-05 13:02] LABS: PSA,Total- Diagnostic < 0.01 ng/mL (0.0-4.0)
== END | disposition home or self-care (01) ==
LOC: LAB 11:37
PROVIDERS: PCP Preventive Medicine Occupational Medicine; Visit Provider Urology
DX: C61 Malignant neoplasm of prostate (principal)
CPT/HCPCS: 36415; 84153

== ENCOUNTER 2023-04-23 18:49 | Observation (INO) | payer MEDICARE, OTHER, SELFPAY ==
[2023-04-23 18:50] VITALS: BP 197/96; PULSE 73; RESP 18; TEMP 36.2; O2SAT 98; BMI 27.6
[2023-04-23 19:02] VITALS: BP 182/94; PULSE 73; RESP 17; O2SAT 97
--- NOTE | 2023-04-23 19:19 | EKG12_ITS ---
Test Reason : CP Blood Pressure : / mmHG Vent. Rate : 070 BPM Atrial Rate : 070 BPM P-R Int : 222 ms QRS Dur : 084 ms QT Int : 368 ms P-R-T Axes : -16 -13 009 degrees QTc Int : 397 ms Sinus rhythm with 1st degree A-V block Minimal voltage criteria for LVH, may be normal variant ( R in aVL ) Inferior infarct , age undetermined Abnormal ECG Confirmed by MELLY GALINDO, AGNIESZKA ([id number]), visual effects editor GRETA JETT ([id number]) on 04/28/2023 1:01:44 PM Referred By: Confirmed By:LUPILLO PICKARD MD
[2023-04-23 19:34] LABS: Absolute Lymphocyte Count 2.56 X10^3/uL (0.83-4.51); Absolute Neutrophil Count 2.4 X10^3/uL (2.0-7.7); Basophil# 0.03 X10^3/uL; Basophil% 0.5 % (0-1); Eosinophil# 0.19 X10^3/uL; Eosinophils% 3.4 % (0-5); Hematocrit 32.6 % (40-54); Hemoglobin 11.1 g/dL (13.0-16.5); Lymphocyte # 2.56 X10^3/ul (0.83-4.51); Lymphocyte % 45.4 % (19-41); Mean Corpuscular Hgb 28.8 pg (27.0-32.0); Mean Corpuscular Volume 84.7 fL (80-94); Monocyte# 0.47 X10^3/uL; Monocyte% 8.3 % (0-10); NRBC Flagged by Analyzer 0 % (0-5); Neutrophil # 2.38 X10^3/uL (2.7-7.7); Neutrophil % 42.2 % (47-70); Platelet Count 255 K/mm3 (150-450); RBC Distribution Width CV 12.7 % (11.6-14.6); Red Blood Count 3.85 M/mm3 (4.6-6.2); White Blood Count 5.6 K/mm3 (4.4-11.0)
--- NOTE | 2023-04-23 19:40 | RAD_ITS ---
INDICATION: Chest pain EXAMINATION/TECHNIQUE: X-RAY - XR Chest 1 View COMPARISON: None FINDINGS: LUNGS: No consolidation, edema or effusion. No pneumothorax. MEDIASTINUM AND CARDIOVASCULAR STRUCTURES: Sternal wires and CABG. Central airways and mediastinal contour are unremarkable. RAD/Chest 1 View (Portable) IMPRESSION: No radiographic evidence of acute cardiopulmonary disease. Electronically Signed: Julius Metz MD at 20:04 EDT ,
--- NOTE | 2023-04-23 19:46 | EDS_ITS ---
HPI History of Present Illness Chief Complaint: Chest Pain Informant: patient and spouse/S.O. Onset/Context/Timing Onset: Days Activity at onset: gradual Timing: Intermittent Quality: Positive for Heaviness and Pressure Location: Substernal, Right Parasternal, Left Parasternal, Right Chest and Left Chest Current Severity: Gone Maximum Severity: Mild Worsened By: Exertion Relieved By: Rest Associated Symptoms: Positive for Dyspnea; Negative for Nausea, Vomiting, Diaphoresis, Cough, Fever, Lightheadedness, Acid Reflux or Palpitations Narrative Narrative: 73-year-old male history of prior PR, CAD, triple bypass done in 2017. Has not had any recent heart cath or stress test. For the last week primarily since Friday has been having intermittent chest tightness and shortness of breath with exertion. He said he is more tired than normal and feels somewhat lightheaded. He denies any diarrhea or melena. No fever. Patient also has a history of diabetes. He is a non-smoker. Prior Similar Symptoms: Yes Recent Illness/Hospitalization: No CVD Risk Factors: Positive for Diabetes PE Risk Factors: Negative for Recent Travel/Surgery, Recent Immobilization, Prior DVT or PE, Cancer or OCP + Smoking + >/=35 TAD Risk Factors: Negative for Marfan's Syndrome [facility] Medical History (Updated 04/23/23 @ 20:[address] Taqueria Esteban MD) Atherosclerotic heart disease of [place] coronary artery without angina pectoris Chronic diastolic heart failure Essential hypertension Pure hypercholesterolemia Type 2 diabetes mellitus Home Medications aspirin 81 mg tablet,delayed release 81 mg PO DAILY heart health 11/05/18 [History Last Taken 11/22/18] multivitamin 1 ea PO DAILY supplement 11/05/18 [History Last Taken 11/23/18] metformin 500 mg tablet,extended release 24 hr See Rx Instructions PO .COMPLEX 01/08/21 [History Last Taken Unknown] omeprazole 40 mg capsule,delayed release 40 mg PO DAILY PRN 01/08/21 [History Last Taken Unknown] dulaglutide 0.75 mg/0.5 mL subcutaneous pen injector (Trulicity) 1.5 mg subcut QWEEK 06/03/22 [History Last Taken Unknown] pravastatin 80 mg tablet 80 mg PO QHS 06/04/22 [History Last Taken Unknown] cholecalciferol (vitamin D3) 25 mcg (1,000 unit) capsule 25 mcg PO DAILY 12/06/22 [History Last Taken Unknown] ezetimibe 10 mg tablet (Zetia) 10 mg PO DAILY 12/06/22 [History Last Taken Unknown] lisinopril 2.5 mg tablet 2.5 mg PO DAILY bp 12/06/22 [History Last Taken Unknown] metoprolol tartrate 25 mg tablet 25 mg PO BID #180 tabs 12/06/22 [Rx Last Taken Unknown] Allergy/AdvReac Type Severity Reaction Status Date / Time atorvastatin AdvReac Intermediate Myalgias, Verified 04/23/23 18:51 nausea amiodarone AdvReac Vomiting Verified 04/23/23 18:51 Family History Mother Diabetes CVA (cerebral vascular accident) Myocardial infarction Brother CVA (cerebral vascular accident) Uncle Myocardial infarction Surgical History (Updated 04/23/23 @ 20:[address] Taqueria Esteban MD) History of coronary artery bypass graft x 3 (~06/01/17) History of prostatectomy History of repair of rotator cuff Social History Smoking Status: Never smoker alcohol intake: never substance use type: does not use caffeine: Yes Type: carbonated beverages and coffee Number of servings: 4 ROS ROS ED ROS Narrative Exertional dyspnea and chest pain. Review of Systems ROS Unobtainable: Denies due to encephalopathy Constitutional Constitutional ED: Denies chills or fever(s) Eyes Eyes: Reports none ENT ENT ED: Denies ear pain Cardiovascular Cardiovascular: Reports as per HPI and chest pain; Denies palpitations or racing heartbeat Respiratory/Chest Respiratory/Chest: Reports dyspnea and dyspnea on exertion; Denies cough Gastrointestinal Gastrointestinal: Denies abdominal pain, constipation, diarrhea, melena or vomiting Genitourinary Genitourinary ED: Denies dysuria or hematuria Musculoskeletal Musculoskeletal: Denies arthralgias Integumentary Denies abscess Neurologic Neurologic: Denies headache(s) Psychiatric Psychiatric: Denies anxiety or depression Endocrine Endocrinology: Denies cold intolerance Hematologic/Lymphatic Hematologic/Lymphatic: Denies easy bleeding or easy bruising Allergic/Immunologic Allergic/Immunologic ED: Denies mouth swelling or tongue swelling EXAM Physical Exam Narrative Exam Narrative: Well-appearing 73-year-old male. Vital signs stable afebrile. Pulse ox 90% on room air no hypoxia. at bedside. HEENT exam unremarkable. Neck nontender. No JVD. No lymphadenopathy. Lungs clear to auscultation bilaterally. Heart regular rate and rhythm no murmur. Chest wall nontender. Abdomen soft nontender. Moving all 4 extremities. Calves are nontender without edema or cords. Neurologically is awake and alert with no focal motor deficits. Const Vital Signs: 04/23/23 18:50 04/23/23 19:02 04/23/23 19:02 Temperature 97.2 F L Temperature Source Temporal Pulse Rate 73 73 Respiratory Rate 18 17 Respiratory Effort Normal Non-Labored Blood Pressure 197/96 H 182/94 H Blood Pressure Mean 129 123 Pulse Ox 98 97 Oxygen Delivery Method Room Air Room Air 04/23/23 19:38 04/23/23 20:00 Temperature Temperature Source Pulse Rate 69 Respiratory Rate 14 Respiratory Effort Blood Pressure 155/84 H Blood Pressure Mean 107 Pulse Ox 98 Oxygen Delivery Method Room Air Room Air Positive well nourished and well developed; Negative for obese, cachectic, contractures or unkempt General Appearance ED: well developed and NAD; Negative for unkempt, cachectic or contractures Nutritional Appearance: Negative for cachectic or obese HEENT Reports moist mucous membranes normocephalic and atraumatic; Negative for trauma or tenderness Eyes PERRL and EOMs intact bilaterally General Eye ED: Negative for pale conjunctiva or scleral icterus Neck no lymphadenopathy, supple and no JVD General: Negative for tenderness Chest Wall inspection of chest normal and palpation of chest normal Chest: Negative for tenderness Resp normal respiratory effort and clear to auscultation bilaterally Effort and Inspection: Negative for respiratory distress Auscultation: Negative for rales, rhonchi or wheezes Cardio regular rate, regular rhythm, S1 normal heart sound, S2 normal heart sound and no murmurs Rate: Negative for bradycardia or tachycardic Rhythm: Negative for abnormal rhythm Peripheral Pulses: pulses 2+ throughout GI normal to inspection, nondistended, normoactive bowel sounds, soft to palpation, non-tender, non-distended and no masses Auscultation: Negative for hyperactive bowel sounds Palpation: Negative for splenomegaly Rectal Exam: heme negative stool Back/Spine no CVA tenderness and no thoracic nor lumbar tenderness General Back: Negative for CVA tenderness Cervical Spine: Negative for cervical spine tenderness Extremity normal to inspection General Extremety ED: Negative for edema or pulses abnormal General Extremity: Negative for edema or pulses abnormal Neuro oriented x3 and CN's II-XII intact bilaterally Sensorium / Orientation: awake, alert, oriented to person, oriented to place and oriented to time; Negative for confused, lethargic or stuporous Motor Exam: strength 5/5 throughout Psych mental status grossly normal Appearance: Negative for unkempt Attitude: No agitated Mood & Affect: Negative for depressed, anxious or tearful Skin no rashes or lesions noted and no wounds General Skin Exam: Negative for jaundice Rashes: No rashes noted Trauma: Negative for abrasion or laceration Heart Score History: Highly Suspicious ECG: Normal Age: >/= 65 years Risk Factors: >/= 3 Risk Factors or History of CAD Troponin: </= Normal Limit Score: 6 MDM MDM MDM Narrative Medical decision making narrative: 73-year-old male history of prior triple bypass surgery 6 years ago. Experiencing over the last week or 2 increasing exertional dyspnea, exertional chest pain and fatigue. History is very consistent with cardiac angina. He will undergo cardiac work-up. I will speak to the hospitalist about admission for further evaluation either stress testing or cardiac catheterization. Repeat exam patient is doing well. He has a very concerning story for unstable angina. He has known coronary disease. He has had a prior triple bypass. I already spoken to the hospitalist he will be admitted to the PCU for either a stress test or heart cath that will be determined in the next 24 hours. Patient and his are aware of the plan and are fine with the admission. He is pain- free. History & Record Review Discussion w/independent historian: Patient Additional record(s) reviewed:: Prior inpatient record, Prior outpatient record, Prior ED visit and Prior labs Lab Data Attestation: I reviewed the patient's lab results. Lab results narrative: CBC shows white count 5.6. H&H 11.1 and 32.6. Platelets 255. Chemistries show a gap of 3. Normal BUN and creatinine. Glucose 123. Troponin normal at 8. Labs: Laboratory Results - last 24 hr 04/23/23 19:10 WBC 5.6 RBC 3.85 L Hgb 11.1 L Hct 32.6 L MCV 84.7 MCH 28.8 MCHC 34.0 RDW Std Deviation 38.0 RDW Coeff of Andres 12.7 Plt Count 255 MPV 10.0 Immature Gran % (Auto) 0.200 Neut % (Auto) 42.2 L Lymph % (Auto) 45.4 H Tarrant % (Auto) 8.3 Eos % (Auto) 3.4 Baso % (Auto) 0.5 Absolute Neuts (auto) 2.4 Absolute Lymphs (auto) 2.56 Nucleated RBC % 0 Sodium 136 Potassium 4.4 Chloride 105 Carbon Dioxide 28.0 Anion Gap 3 L BUN 18 Creatinine 0.99 Estim Creat Clear Calc 68.44 Est GFR (MDRD) Af Amer 96 Est GFR (MDRD) Non-Af 79 BUN/Creatinine Ratio 18.2 Glucose 123 H Calcium 8.8 Troponin I High Sens 8 Radiography Chest X-Ray - ED: 1 View, Read by ED Physician, Read by Radiologist, Heart, Lungs, Mediastinum, Bony Structures, No Acute Disease and Chronic Changes Diagnostic Testing: Clinical Impression(s) from Imaging Studies Chest X-Ray 04/23/23 19:40 IMPRESSION: No radiographic evidence of acute cardiopulmonary disease. Electronically Signed: Julius Metz MD at 20:04 EDT , Chest x-ray, portable, single view shows no acute abnormality. Normal cardiac silhouette. Interpreted both by myself and the radiologist. We agree. Prior sternotomy. Rhythm Strip Rhythm Strip: Sinus Rhythm Rate: 70 Ectopy: None EKG Initial EKG: Attestation: I personally reviewed and interpreted this EKG as follows: Interpretation: Sinus Rhythm and No Acute Injury Pattern Comments: Normal sinus rhythm rate of 70 no acute signs of PR or ischemia. Inverted T wave in lead III. Prior EKG tracings: available for review Prior: Unchanged Discharge Plan Triage Chief Complaint: Chest Pain ED Provider: Taqueria Esteban Dx/Rx/DC Orders Clinical Impression: History of PR (myocardial infarction), Unstable angina, Hx of CABG, History of diabetes mellitus, Chest pain Prescriptions: No Action omeprazole 40 mg capsule,delayed release(DR/EC) 40 mg PO DAILY PRN metformin 500 mg tablet extended release 24 hr See Rx Instructions PO .COMPLEX Rx Instructions: Take 1 tablet QAM, 3 tablets QPM ; PO; Trulicity 0.75 mg/0.5 mL pen injector 1.5 mg subcut QWEEK lisinopril 2.5 mg tablet 2.5 mg PO DAILY cholecalciferol (vitamin D3) 25 mcg (1,000 unit) capsule 25 mcg PO DAILY ezetimibe [Zetia] 10 mg tablet 10 mg PO DAILY metoprolol tartrate 25 mg tablet 25 mg PO BID Qty: 180 3RF multivitamin 1 EACH tablet 1 ea PO DAILY aspirin 81 MG tablet,delayed release (DR/EC) 81 mg PO DAILY Patient Comments: was told to stop for surgery pravastatin 80 mg tablet 80 mg PO QHS Primary Care Provider: Tom Nath Referrals: Tom Nath DO [Primary Care Provider] - Disposition Disposition: Acute Care Hospital [facility]
[2023-04-23 19:48] LABS: Anion Gap 3 (5-15); BUN 18 mg/dL (7-18); BUN/Creat Ratio 18.2 RATIO (10-20); Calcium,Total 8.8 mg/dL (8.5-10.1); Chloride 105 mmol/L (98-107); Creatinine, Serum 0.99 mg/dL (0.70-1.30); EST Glomerular Filtration Rate 79 mL/min (>60); Est Glom Filt Rate - Afr Amer 96 mL/min (>60); Estimated Creatinine Clearance 68.44 ml/min; Glucose 123 mg/dL (74-106); Potassium 4.4 mmol/L (3.5-5.1); Sodium Level 136 mmol/L (136-145); Troponin-I HS (w/2H Reflex) 8 pg/mL (3.0-78.0)
[2023-04-23 20:00] VITALS: BP 155/84; PULSE 69; RESP 14; O2SAT 98
--- NOTE | 2023-04-23 20:42 | EKG12_ITS ---
Test Reason : AM EKG Blood Pressure : / mmHG Vent. Rate : 065 BPM Atrial Rate : 065 BPM P-R Int : 214 ms QRS Dur : 094 ms QT Int : 406 ms P-R-T Axes : -22 -25 008 degrees QTc Int : 422 ms Sinus rhythm with 1st degree A-V block Minimal voltage criteria for LVH, may be normal variant ( R in aVL ) Septal infarct , age undetermined Inferior infarct , age undetermined Abnormal ECG When compared with ECG of 23-APR-2023 21:42, MANUAL COMPARISON REQUIRED, DATA IS UNCONFIRMED Confirmed by MELLY GALINDO, AGNIESZKA ([id number]), script editor GRETA JETT ([id number]) on 04/28/2023 1:24:24 PM Referred By: Narcisa Confirmed By:LUPILLO PICKARD MD
--- NOTE | 2023-04-23 20:42 | PCM.HP.STD ---
[facility] - General General Date of Admission: 04/23/23 Date of Service: 04/23/23 Chief Complaint: Chest pain HPI Narrative RADHA DOMINGUEZ, is a 73 M with a significant history of hypertension, CAD status post triple-vessel CABG in 2017; and diabetes mellitus (on Trulicity and metformin) who presents emergency department with substernal chest pain that started 2 days before presentation. He rates his pain as a 3 on a scale of 1-10. The chest pain has been progressively worse. He described chest pain as a pressure. He denies any nausea, or vomiting stated the chest pain. However before presentation patient had a nausea and vomiting. Patient denies any acute chest pain with exertion. However he has shortness of breath with exertion. He denies any ameliorating factors to the chest pain. He has had intermittent swelling of his bilateral legs. He has had intermittent changes in weight. Reportedly it weight rises up and then falls down. [facility] Medical History (Updated 04/23/23 @ 21:[address] Christopher Brewster MD) Atherosclerotic heart disease of [place] coronary artery without angina pectoris Chronic diastolic heart failure Essential hypertension Pure hypercholesterolemia Type 2 diabetes mellitus Home Medications aspirin 81 mg tablet,delayed release 81 mg PO DAILY heart health 11/05/18 [History Last Taken 11/22/18] multivitamin 1 ea PO DAILY supplement 11/05/18 [History Last Taken 11/23/18] metformin 500 mg tablet,extended release 24 hr See Rx Instructions PO .COMPLEX diabetes 01/08/21 [History Last Taken Unknown] omeprazole 40 mg capsule,delayed release 40 mg PO DAILY PRN gerd 01/08/21 [History Last Taken Unknown] dulaglutide 0.75 mg/0.5 mL subcutaneous pen injector (Trulicity) 1.5 mg subcut QWEEK diabetes 06/03/22 [History Last Taken Unknown] pravastatin 80 mg tablet 80 mg PO QHS high cholesterol 06/04/22 [History Last Taken Unknown] cholecalciferol (vitamin D3) 25 mcg (1,000 unit) capsule 25 mcg PO DAILY supplement 12/06/22 [History Last Taken Unknown] ezetimibe 10 mg tablet (Zetia) 10 mg PO DAILY high cholesterol 12/06/22 [History Last Taken Unknown] lisinopril 2.5 mg tablet 2.5 mg PO DAILY bp 12/06/22 [History Last Taken Unknown] metoprolol tartrate 25 mg tablet 25 mg PO BID bp #180 tabs 12/06/22 [Rx Last Taken Unknown] Allergy/AdvReac Type Severity Reaction Status Date / Time atorvastatin AdvReac Intermediate Myalgias, Verified 04/23/23 18:51 nausea amiodarone AdvReac Vomiting Verified 04/23/23 18:51 Family History Mother Diabetes CVA (cerebral vascular accident) Myocardial infarction Brother CVA (cerebral vascular accident) Uncle Myocardial infarction Surgical History History of coronary artery bypass graft x 3 (~06/01/17) History of prostatectomy History of repair of rotator cuff Social History Smoking Status: Never smoker alcohol intake: never substance use type: does not use caffeine: Yes Type: carbonated beverages and coffee Number of servings: 4 ROS ROS Narrative Pertinent positives and pertinent negatives as noted in HPI. All other systems were reviewed and are negative Vital Signs Vital Signs Vital Signs: 04/23/23 18:50 04/23/23 19:02 04/23/23 19:02 Temperature 97.2 F L Temperature Source Temporal Pulse Rate 73 73 Respiratory Rate 18 17 Respiratory Effort Normal Non-Labored Blood Pressure 197/96 H 182/94 H Blood Pressure Mean 129 123 Pulse Ox 98 97 Oxygen Delivery Method Room Air Room Air 04/23/23 19:38 04/23/23 20:00 Temperature Temperature Source Pulse Rate 69 Respiratory Rate 14 Respiratory Effort Blood Pressure 155/84 H Blood Pressure Mean 107 Pulse Ox 98 Oxygen Delivery Method Room Air Room Air Weight Weight: 84.822 kg Body Mass Index (BMI) 27.6 Physical Exam Narrative Physical exam: General: Well-nourished, well-developed. Head: Normocephalic, atraumatic, no tenderness Eyes: Vision is grossly intact. EOMI ENT, no trauma, moist mucous membranes, no rhinorrhea Neck: Nontender, No thyromegaly. CVS: Regular rate and rhythm. S1-S2 present. No murmur, gallop or rub. Respiratory : clear to auscultation bilaterally, chest wall nontender Abdomen: Soft, nontender, nondistended, normal bowel sounds, no masses : Deferred Back: Nontender, no CVA tenderness, no midline spinal tenderness, deformities, step-offs Extremities: Nontender full range of motion, no trauma Skin: Normal color, no trauma, abrasions Neuro: Alert, oriented, cranial nerves II through XII grossly intact. Psychiatry: Normal mood. Normal affect. Not depressed. Not anxious. Results Lab / Micro Data 04/24/23 04:15 04/24/23 04:15 Labs: Laboratory Results - last 24 hr 04/23/23 19:10: WBC 5.6, RBC 3.85 L, Hgb 11.1 L, Hct 32.6 L, MCV 84.7, MCH 28.8, MCHC 34.0, RDW Std Deviation 38.0, RDW Coeff of Andres 12.7, Plt Count 255, MPV 10.0, Immature Gran % (Auto) 0.200, Neut % (Auto) 42.2 L, Lymph % (Auto) 45.4 H, [place] % (Auto) 8.3, Eos % (Auto) 3.4, Baso % (Auto) 0.5, Absolute Neuts (auto) 2.4, Absolute Lymphs (auto) 2.56, Nucleated RBC % 0, Sodium 136, Potassium 4.4, Chloride 105, Carbon Dioxide 28.0, Anion Gap 3 L, BUN 18, Creatinine 0.99, Estim Creat Clear Calc 68.44, Est GFR (MDRD) Af Amer 96, Est GFR (MDRD) Non-Af 79, BUN/Creatinine Ratio 18.2, Glucose 123 H, Calcium 8.8, Troponin I High Sens 8 Rhythm Strip Rhythm Strip: Sinus Rhythm Rate: 70 Ectopy: None Radiology Impression Chest X-Ray 04/23/23 19:40 IMPRESSION: No radiographic evidence of acute cardiopulmonary disease. Electronically Signed: Julius Metz MD at 20:04 EDT , Assessment & Plan Assessment/Plan (1) Chest pain: QUALIFIERS: Chest pain type: unspecified Qualified Code(s): R07.9 - Chest pain, unspecified PLAN: Plan Chest pain Place on a monitored bed at progressive care unit Impression of chest x-ray by radiology: No radiographic evidence of acute cardiopulmonary disease. Actual CXR image was independently visualized. No acute cardiopulmonary process was noted. Actual EKG tracing was independently visualized. EKG tracing showed T-wave inversions in inferior leads. Old records reviewed showed T wave inversion in inferior leads on EKG obtained on 11/06/2020. We will do an echocardiogram and a stress test. Initial troponin was neg We will check lipid panel. Pravastatin continued. Serial cardiac enzymes ordered Stat EKG as needed for chest pain Lisinopril and metoprolol continued. Hold metoprolol for stress test. Patient is observation status since his pain is around 3 out of 10. I think a stress test is appropriate. If patient fails stress test the oncology can be consulted. Diabetes mellitus Blood glucose is stable. Accu-Chek with correction scale insulin ordered Hypertension Blood pressure is stable Lisinopril metoprolol continued. Trend blood pressure and adjust blood pressure medications. DVT prophylaxis: SCD ORDERED. Charges/Coding Visit Charges Inpatient E&M: 65359 Init Hosp L2
[2023-04-23 20:45] VITALS: BP 132/79; PULSE 72; RESP 18; TEMP 36.6; O2SAT 98
[2023-04-23] MEDS: Aspirin 325 MG Tablet PO (21:06)
[2023-04-23 21:26] LABS: Reflex Troponin-HS? (from REC) Y
[2023-04-23 21:27] VITALS: BMI 27.2
[2023-04-23 21:29] VITALS: BP 167/69; PULSE 66; RESP 17; TEMP 36.6; O2SAT 97
[2023-04-23 21:53] VITALS: O2SAT 97
[2023-04-23 22:06] LABS: Troponin-I HS 7 pg/mL (3.0-78.0)
[2023-04-23 23:06] LABS: Bedside Glucose 174 mg/dL (74-106)
[2023-04-24 03:29] VITALS: BP 148/80; PULSE 68; RESP 16; TEMP 36.4; O2SAT 97
[2023-04-24 04:30] LABS: Absolute Lymphocyte Count 2.12 X10^3/uL (0.83-4.51); Absolute Neutrophil Count 2.5 X10^3/uL (2.0-7.7); Basophil# 0.02 X10^3/uL; Basophil% 0.4 % (0-1); Eosinophil# 0.17 X10^3/uL; Eosinophils% 3.3 % (0-5); Hematocrit 32.1 % (40-54); Hemoglobin 11.1 g/dL (13.0-16.5); Lymphocyte # 2.12 X10^3/ul (0.83-4.51); Lymphocyte % 40.8 % (19-41); Mean Corp Hgb Conc 34.6 g/dL (32-36); Mean Corpuscular Hgb 29.2 pg (27.0-32.0); Mean Corpuscular Volume 84.5 fL (80-94); Mean Platelet Vol. 9.4 fl (6.2-12.0); Monocyte# 0.39 X10^3/uL; Monocyte% 7.5 % (0-10); NRBC Flagged by Analyzer 0 % (0-5); Neutrophil # 2.49 X10^3/uL (2.7-7.7); Neutrophil % 47.8 % (47-70); Platelet Count 218 K/mm3 (150-450); RBC Distribution Width CV 12.7 % (11.6-14.6); RBC Distribution Width SD 37.9 fl (35.1-43.9); White Blood Count 5.2 K/mm3 (4.4-11.0)
[2023-04-24 05:03] LABS: Troponin-I HS 7 pg/mL (3.0-78.0)
[2023-04-24 05:08] LABS: Anion Gap 3 (5-15); BUN 18 mg/dL (7-18); BUN/Creat Ratio 22.4 RATIO (10-20); Calcium,Total 8.4 mg/dL (8.5-10.1); Chloride 110 mmol/L (98-107); Cholesterol 94 mg/dL (200); EST Glomerular Filtration Rate 101 mL/min (>60); Est Glom Filt Rate - Afr Amer 122 mL/min (>60); Estimated Creatinine Clearance 84.69 ml/min; Glucose 139 mg/dL (74-106); High Density Lipoprotein 42 mg/dL; Potassium 3.9 mmol/L (3.5-5.1); Sodium Level 141 mmol/L (136-145); Triglycerides 146 mg/dL; Very Low Density Lipoprotein 29 mg/dL (5-40)
[2023-04-24 05:22] VITALS: BP 143/76; PULSE 66; RESP 18; TEMP 36.3; O2SAT 95
[2023-04-24] MEDS: Aspirin 81 MG TAB.CHEW PO (05:24)
--- NOTE | 2023-04-24 05:55 | EKG12_ITS ---
Test Reason : CP Admission Blood Pressure : / mmHG Vent. Rate : 070 BPM Atrial Rate : 070 BPM P-R Int : 228 ms QRS Dur : 092 ms QT Int : 390 ms P-R-T Axes : -27 -23 001 degrees QTc Int : 421 ms Sinus rhythm with 1st degree A-V block Minimal voltage criteria for LVH, may be normal variant ( R in aVL ) Inferior infarct , age undetermined Abnormal ECG When compared with ECG of 23-APR-2023 18:53, MANUAL COMPARISON REQUIRED, DATA IS UNCONFIRMED Confirmed by MELLY GALINDO, AGNIESZKA ([id number]), film or videotape editor GRETA JETT ([id number]) on 04/28/2023 1:25:36 PM Referred By: Narcisa Confirmed By:LUPILLO PICKARD MD
--- NOTE | 2023-04-24 05:55 | ECHOD_ITS ---
Reason For Study: CHEST PAIN Procedure This was a 2D Doppler, Color Flow transthoracic echocardiogram. Exam performed in department. Left Ventricle Normal LV size. Left ventricular systolic function is normal. The estimated ejection fraction is 60 %. No regional wall motion abnormalities noted. Right Ventricle Normal size and thickness. Normal systolic function. Atria The left atrium is mildly enlarged. Normal right atrium. Mitral Valve Normal mitral valve. Mild (1+) eccentric mitral valve insufficiency. Tricuspid Valve Normal tricuspid valve. Aortic Valve Normal aortic valve. Trisinus/trileaflet aortic valve. Pulmonic Valve Normal pulmonic valve. Great Vessels Normal aortic root. The pulmonary artery is normal size. Normal inferior vena cava. Pericardium/Pleural No pericardial effusion. MMode/2D Measurements & Calculations LVIDd: 4.9 cm IVSd: 1.1 cm Ao root diam: 3.8 cm LVIDs: 3.8 cm LVPWd: 1.2 cm RVDd: 3.8 cm FS: 21.4 % LAV(MOD-bp): 85.7 ml LVAd ap4: 33.9 cm2 SV(MOD-sp4): 72.9 ml LAV(MOD-bp) Indexed: 43.0 ml/m2 LVLd ap4: 8.8 cm LAV(MOD-sp2): 106.0 ml EDV(MOD-sp4): 111.0 ml LAV(MOD-sp4): 64.9 ml EDV(sp4-el): 111.7 ml LVAs ap4: 16.6 cm2 LVLs ap4: 6.7 cm ESV(MOD-sp4): 38.1 ml ESV(sp4-el): 34.9 ml EF(MOD-sp4): 65.7 % EF(sp4-el): 68.8 % SV(sp4-el): 76.8 ml LA A4 area: 21.5 cm2 LA dimension(2D): 4.3 cm RA A4 area: 20.0 cm2 TAPSE: 1.5 cm Time Measurements MV dec time: 0.21 sec Doppler Measurements & Calculations MV E max karthik: 67.2 cm/sec Lat Peak E' Karthik: 13.5 cm/sec Med Peak E' Karthik: 6.0 cm/sec MV A max karthik: 59.9 cm/sec E/E' lat: 5.0 E/E' med: 11.3 MV E/A: 1.1 MV V2 max: 93.8 cm/sec Ao V2 max: 141.9 cm/sec MV max P.5 mmHg MV dec slope: 316.9 cm/sec2 Ao max P.1 mmHg MV V2 mean: 64.8 cm/sec Ao V2 mean: 93.7 cm/sec MV mean P.8 mmHg Ao mean P.1 mmHg MV V2 VTI: 31.6 cm Ao V2 VTI: 32.1 cm AV (velocity ratio): 0.80 LV V1 max: 102.3 cm/sec MR max karthik: 504.0 cm/sec PA V2 max: 166.0 cm/sec LV V1 max P.2 mmHg MR max P.6 mmHg PA V2 mean: 114.5 cm/sec LV V1 mean P.2 mmHg LV V1 mean: 68.3 cm/sec LV V1 VTI: 25.7 cm PI dec slope: 271.2 cm/sec2 ECHO/Echo Complete Interpretation Summary Normal LV size. Left ventricular systolic function is normal. The estimated ejection fraction is 60 %. The left atrium is mildly enlarged. Mild (1+) eccentric mitral valve insufficiency. Ordering Physician: Christopher Brewster Referring Physician: MENG MENDES Performed By: Trista Blackburn RCS
[2023-04-24] MEDS: Lisinopril 2.5 MG Tablet PO (06:42)
[2023-04-24 06:50] LABS: Bedside Glucose 141 mg/dL (74-106)
[2023-04-24 10:02] VITALS: BP 138/87; PULSE 80; RESP 18; TEMP 36.7; O2SAT 97
[2023-04-24 10:40] VITALS: PULSE 80
[2023-04-24] MEDS: Metoprolol Tartrate 25 MG Tablet PO (10:40)
[2023-04-24] MEDS: Insulin Lispro 100 UNIT/ML INSULN.PEN SC (11:15)
[2023-04-24 11:21] LABS: Bedside Glucose 177 mg/dL (74-106)
--- NOTE | 2023-04-24 11:39 | CASEMGMT ---
Patient does not have a Healthcare Power of Manufacturing Production Technician (HCPOA) or Healthcare Living Will on file at [facility]. Per admission questions patient thinks they are on file at [facility]. SW will notify patient documents are not on file. Mara BOWERS
--- NOTE | 2023-04-24 16:08 | CHAPLAIN ---
Type of Pastoral Visit _x__ Initial Visit ___ Follow-up Visit ___ On-call Visit ___ General Patient Visit ___ Spiritual Assessment ___ Family Conference ___ Bereavement ___ Rapid Response ___ Code Blue ___ Other (describe below) Pastoral Care Referral From _x__ Patient ___ Family ___ Nurse ___ Physician ___ Precision Thread Grinder Operator ___ Hand Plug Shaper ___ Other (describe below) Sacrament/Intervention _x__ Active listening ___ Anointing ___ Jew ___ Bereavement ___ Communion _x__ Shannon exploration ___ _x__ Life review _x__ Prayer ___ Reconciliation ___ Sacrament of Sick _x__ Supportive presence ___ Wedding ___ Other (describe below) Pastoral Comments patient and spouse are welcoming; pt reports feeling better and gave some health history; pt is waiting for report from doctor but is optimistic; pt talks about his own shannon and 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
[2023-04-24] MEDS: Multivitamins,Therapeutic Tablet 1 TABLET PO (16:19)
[2023-04-24] MEDS: Ezetimibe 10 MG Tablet PO (16:19)
[2023-04-24] MEDS: Cholecalciferol (VIT D3) 25 MCG TABLET (1,000 UNITS) PO (16:19)
[2023-04-24 17:06] VITALS: BP 136/85; PULSE 72; RESP 17; TEMP 37.1; O2SAT 97
--- NOTE | 2023-04-24 17:20 | PCM.DC.SUM ---
Providers Date of Admission: 04/23/23 Date of Discharge: 04/24/23 Primary Care Physician: Dr. Meng Nath DO Reason For Visit: UNSTABLE ANGINA Diagnosis Discharge Diagnosis (1) Chest pain: Status: Acute Code(s): R07.9 - Chest pain, unspecified Qualifiers: Chest pain type: unspecified Qualified Code(s): R07.9 - Chest pain, unspecified Medications at Discharge Home Medications aspirin 81 mg tablet,delayed release 81 mg PO DAILY heart health 11/05/18 multivitamin 1 ea PO DAILY supplement 11/05/18 metformin 500 mg tablet,extended release 24 hr See Rx Instructions PO .COMPLEX diabetes 01/08/21 omeprazole 40 mg capsule,delayed release 40 mg PO DAILY PRN gerd 01/08/21 dulaglutide 0.75 mg/0.5 mL subcutaneous pen injector (Trulicity) 1.5 mg subcut QWEEK diabetes 06/03/22 pravastatin 80 mg tablet 80 mg PO QHS high cholesterol 06/04/22 cholecalciferol (vitamin D3) 25 mcg (1,000 unit) capsule 25 mcg PO DAILY supplement 12/06/22 ezetimibe 10 mg tablet (Zetia) 10 mg PO DAILY high cholesterol 12/06/22 lisinopril 2.5 mg tablet 2.5 mg PO DAILY bp 12/06/22 metoprolol tartrate 25 mg tablet 25 mg PO BID bp #180 tabs 12/06/22 Hospital Course Procedures 2-D Echocardiogram, EGD, Stress test and - (Chest x-ray) Summary of Care Provided Minutes Spent on Discharge: 22 Hospital Course: Mr. Stein is a 73-year-old white male who presented to the emergency department at [facility] on 04/23/2023 with a chief complaint of chest pain. He had a past medical history of coronary artery disease and had a triple-vessel bypass in 2017. He also has a history of hypertension DM-2 to and hyperlipidemia. Patient reported on presentation that for about 2 days prior to presentation he was experiencing substernal chest pain. He rated his pain at 3 out of 10 and reported it had progressively worsened. He described it as pressure but denied any nausea, vomiting, diaphoresis but did complain of some mild associated shortness of breath. He reported that he was a bit more tired than typical and felt somewhat lightheaded. He had been out in the sun pretty extensively per his on the day of presentation and it was very hot out. Since admission he has been chest pain-free and feeling back to his baseline on 04/24/2023. Cardiac and his labs were cycled x3 and were 8-7-7. A stress test and an echocardiogram were performed. Stress test was negative for any new inducible ischemia and showed his old scar from previous infarct. Echocardiogram showed an EF of 60% with no wall motion abnormality, mild left atrial enlargement and mild eccentric mitral valve insufficiency. Patient was previously seeing Dr. Hernández. He has an upcoming appointment to see one of the nurse practitioners in the [facility] office in July. He was encouraged to keep this appointment and follow-up with his primary care physician within the next month. No medication changes were made the patient was asymptomatic from the time of admission. He was discharged home in stable condition on 04/24/2023. Discharge diagnoses: Chest pain-etiology unclear CAD DM-2 HTN HPL Compensated diastolic heart failure Prostate cancer Physical Exam Const alert, oriented x3, no apparent distress, average body habitus, healthy appearing and well nourished Constitutional Narrative: Older, very pleasant, white male, sitting up in bed, at bedside, appears comfortable and nontoxic General Appearance: cooperative, comfortable, well kempt and well developed Orientation / Consciousness: awake, oriented to person, oriented to place and oriented to time Exam Limitations: no limitations HEENT normocephalic, head/scalp atraumatic and hearing grossly normal bilaterally HEENT Narrative: Mallampati 2, no thrush Resp normal respiratory effort, no retractions, no use of accessory muscles and clear to auscultation bilaterally Auscultation: Negative for rales, rhonchi or wheezes Cardio regular rate, regular rhythm, S1 normal heart sound, S2 normal heart sound, no murmurs, no rub, no gallops and no clicks GI normal to inspection, nondistended, normoactive bowel sounds, soft to palpation and non-tender Extremity no clubbing, cyanosis or edema Extremity Narrative: Pedal pulses are 2+ Neuro oriented x3, moves all extremities and no focal motor deficits Speech: speech normal Psych affect normal Psych Narrative: Very pleasant, appropriately interactive Weight / BMI Weight Weight: 83.6 kg Body Mass Index (BMI) 27.2 ABG / Lab / Microbiology Data 04/24/23 04:15 04/24/23 04:15 Laboratory: Laboratory Results - last 24 hr 04/23/23 19:10: WBC 5.6, RBC 3.85 L, Hgb 11.1 L, Hct 32.6 L, MCV 84.7, MCH 28.8, MCHC 34.0, RDW Std Deviation 38.0, RDW Coeff of Andres 12.7, Plt Count 255, MPV 10.0, Immature Gran % (Auto) 0.200, Neut % (Auto) 42.2 L, Lymph % (Auto) 45.4 H, [place] % (Auto) 8.3, Eos % (Auto) 3.4, Baso % (Auto) 0.5, Absolute Neuts (auto) 2.4, Absolute Lymphs (auto) 2.56, Nucleated RBC % 0, Sodium 136, Potassium 4.4, Chloride 105, Carbon Dioxide 28.0, Anion Gap 3 L, BUN 18, Creatinine 0.99, Estim Creat Clear Calc 68.44, Est GFR (MDRD) Af Amer 96, Est GFR (MDRD) Non-Af 79, BUN/Creatinine Ratio 18.2, Glucose 123 H, Calcium 8.8, Troponin I High Sens 8 04/23/23 21:43: Troponin I High Sens 7 04/23/23 22:47: POC Glucose 174 H 04/24/23 04:15: WBC 5.2, RBC 3.80 L, Hgb 11.1 L, Hct 32.1 L, MCV 84.5, MCH 29.2, MCHC 34.6, RDW Std Deviation 37.9, RDW Coeff of Andres 12.7, Plt Count 218, MPV 9.4, Immature Gran % (Auto) 0.200, Neut % (Auto) 47.8, Lymph % (Auto) 40.8, [place] % (Auto) 7.5, Eos % (Auto) 3.3, Baso % (Auto) 0.4, Absolute Neuts (auto) 2.5, Absolute Lymphs (auto) 2.12, Nucleated RBC % 0, Sodium 141, Potassium 3.9, Chloride 110 H, Carbon Dioxide 28.0, Anion Gap 3 L, BUN 18, Creatinine 0.80, Estim Creat Clear Calc 84.69, Est GFR (MDRD) Af Amer 122, Est GFR (MDRD) Non-Af 101, BUN/Creatinine Ratio 22.4 H, Glucose 139 H, Calcium 8.4 L, Troponin I High Sens 7, Triglycerides 146, Cholesterol 94, LDL Cholesterol 23, VLDL Cholesterol 29, HDL Cholesterol 42 04/24/23 05:26: POC Glucose 141 H 04/24/23 11:01: POC Glucose 177 H Radiography Diagnostic Testing: Radiology Impression Chest X-Ray 04/23/23 19:40 IMPRESSION: No radiographic evidence of acute cardiopulmonary disease. Electronically Signed: Julius Metz MD at 20:04 EDT , Echocardiogram 04/24/23 05:55 Interpretation Summary Normal LV size. Left ventricular systolic function is normal. The estimated ejection fraction is 60 %. The left atrium is mildly enlarged. Mild (1+) eccentric mitral valve insufficiency. Ordering Physician: Christopher Brewster Referring Physician: MENG NATH Performed By: Trista Blackburn RCS D/C Instructions Discharge Diet: Low fat / Low cholesterol and 1800 Calorie Control Diet Discharge Activity: Return to Normal Activity Meaningful Use Info Meaningful Use Diagnoses (Choose all that apply): None applicable Discharge Plan Admission Admit Date/Time: 04/23/23 21:24 Primary Reason for Your Visit: Chest pain Attending Provider: Bailee Betts Primary Care Provider: Meng Nath Consulting Providers: Christopher Brewster Instructions Additional Instructions / Restrictions: 1. Please keep your appointment with your [facility]er Discharge Orders/Prescriptions Prescriptions: Continued omeprazole 40 mg capsule,delayed release(DR/EC) 40 mg PO DAILY PRN (Reason: gerd) metformin 500 mg tablet extended release 24 hr See Rx Instructions PO .COMPLEX Rx Instructions: Take 1 tablet QAM, 3 tablets QPM ; PO; Trulicity 0.75 mg/0.5 mL pen injector 1.5 mg subcut QWEEK lisinopril 2.5 mg tablet 2.5 mg PO DAILY cholecalciferol (vitamin D3) 25 mcg (1,000 unit) capsule 25 mcg PO DAILY ezetimibe [Zetia] 10 mg tablet 10 mg PO DAILY metoprolol tartrate 25 mg tablet 25 mg PO BID Qty: 180 3RF multivitamin 1 EACH tablet 1 ea PO DAILY aspirin 81 MG tablet,delayed release (DR/EC) 81 mg PO DAILY pravastatin 80 mg tablet 80 mg PO QHS Referrals / Follow Up: Meng Nath DO [Primary Care Provider] - Within 1 Month Disposition Disposition (needs filled in before D/C Order can be placed): Home, Self Care Charges/Coding Visit Charges Inpatient E&M: 36291 Disch Hosp
[2023-04-24 17:47] LABS: Bedside Glucose 133 mg/dL (74-106)
--- NOTE | 2023-04-24 18:12 | STRESSREP_ITS ---
Stress Test Report Exercise myocardial perfusion stress test. 73-year-old man with a history of chest pain Stress protocol: Resting EKG demonstrates normal sinus rhythm with a rate of 71 bpm resting blood pressure is 144/86 mmHg. The patient exercised according to the regular Titus protocol for a total duration of 9 minutes attaining a maximum heart rate of 139 bpm which was 93% of maximum predicted heart rate; the maximum workload was 10.4 metabolic equivalents. At rest there were no ST or T wave changes noted to suggest ischemia and at peak exercise upsloping ST changes only were noted which did not meet the criteria for ischemia. No clinical angina was noted the test was terminated due to the target heart rate being achieved/fatigue. The peak b lood pressure was 202/74 mmHg. Rate-pressure product was 27,600. Myocardial perfusion protocol. 11 mCi of technetium 99m sestamibi was injected at rest. The patient exercised according to regular Titus protocol for total duration of 9 minutes and at peak exercise 34.6 mCi of technetium 99m sestamibi was injected stress images were obtained stress and rest images were reconstructed in comparing the short axis vertical long and horizontal long axis. Gated images were also obtained. Perfusion SPECT analysis: Review of the stress images demonstrate normal uptake of tracer noted in all areas of the myocardium except for small portion of the lateral wall with mildly reduced perfusion. The resting images similarly demonstrate normal uptake of tracer noted in all areas of the myocardium including the area in the lateral wall with mildly reduced perfusion with minimal improvement suggesting minimal mariajose-infarct ischemia. Gated SPECT analysis: The gated ejection fraction is 62%. Conclusion: Near normal exercise myocardial perfusion stress test at a high workload Preserved ejection fraction.
== END 2023-04-24 18:32 | disposition home or self-care (01) ==
LOC: ED 20:47 → PCU 21:00
PROVIDERS: Admitting Provider Hospitalist; Emergency Provider Emergency Medicine; PCP Preventive Medicine Occupational Medicine; Visit Provider Internal Medicine
DX: R07.89 Other chest pain (principal); I11.0 Hypertensive heart disease with heart failure; I50.32 Chronic diastolic (congestive) heart failure; C61 Malignant neoplasm of prostate; E11.9 Type 2 diabetes mellitus without complications; Z79.84 Long term (current) use of oral hypoglycemic drugs; I25.10 Atherosclerotic heart disease of native coronary artery without angina pectoris; Z79.82 Long term (current) use of aspirin; E78.00 Pure hypercholesterolemia, unspecified; Z79.899 Other long term (current) drug therapy; I25.2 Old myocardial infarction; Z95.1 Presence of aortocoronary bypass graft; R06.02 Shortness of breath; R42 Dizziness and giddiness
CPT/HCPCS: 36415; 71045; 78452; 80048; 80061; 82962; 84484; 85025; 93005; 93017; 93306; 99221; 99285; A9500; A4216; G0378

== ENCOUNTER → 2023-11-14 | Outpatient (CLI) | payer MEDICARE, OTHER, SELFPAY ==
--- OUTSIDE RECORDS SUMMARY | 2023-11-14 15:18 | XMS RPT_ITS | CCD ---
Author Name Unknown Address [address] [place] [address] Organization [facility] Care Team Providers Care Picker Name Role Phone Fer Foss Unavailable Unavailable Fer Foss Unavailable Unavailable *SELF, REFERRED Unavailable Unavailable Meng Nath Unavailable Unavailable MENG NATH DO Primary Care Physician ([phone]) MENG NATH DO Primary Care Physician ([phone]) SHYANNE CHAMBERS MD Attending UnavailMENG Cobian DO Primary Care Unavailable SHYANNE CHAMBERS MD Attending UnavailMENG Cobian DO Primary Care Unavailable TRINI YORK DO Attending Unavailable MENG NATH DO Primary Care Unavailable Allergies Allergy Classification Reported Allergen(s) Allergy Type Date of Onset Reaction(s) Facility (2 sources) atorvastatin; Translations: [atorvastatin] Drug Allergy 2 Nausea (finding) [facility] Medications Current Medications Medication Drug Class(es) Dates Sig (Normalized) Sig (Original) acetaminophen 500 mg oral tablet (1 source) Start: 01-11-2023 acetaminophen 500 mg oral tablet Dose : 1,000 mg = 2 tab(s), Oral, TID, PRN pain or fever, 0 Refill(s) Start Date: 01/11/23 Status: Ordered aspirin 81 mg chewable tablet (3 sources) Platelet Aggregation Inhibitor, Nonsteroidal Anti-inflammatory Drug Start: 06-05-2017 [facility] Aspirin 81 mg oral tablet, (chewable) Dose : 81 mg = 1 tab(s), Oral, qDayM, 0 Refill(s) Start Date: 06/05/17 Status: Ordered Completed/Discontinued Medications Medication Drug Class(es) Dates Sig (Normalized) Sig (Original) 0.5 ml dulaglutide 3 mg/ml auto-injector (3 sources) GLP-1 Receptor Agonist Start: 08-15-2022 inject 0.5 mL by subcutaneous injection every week Trulicity Pen 1.5 mg/0.5 mL subcutaneous solution Dose : 1.5 mg = 0.5 mL, Subcutaneous, qWeek, rotate injection sites, # 2 mL, 0 Refill(s), 0.5 mL/Pen, other reason (Rx) Start Date: 08/15/22 Status: Ordered Problems Active Problems Problem Classification Problem Date Documented Da te Episodic/Chronic Coronary atherosclerosis and other heart disease (5 sources) Coronary arteriosclerosis; Translations: [History of myocardial infarction] 03-20-2020 Chronic Diabetes mellitus without complication (3 sources) Type 2 diabetes mellitus 06-03-2017 Chronic Disorders of lipid metabolism (2 sources) Hyperlipidemia 01-07-2022 Chronic Fluid and electrolyte disorders (3 sources) Hyponatremia 05-18-2020 Episodic Mycoses (3 sources) Tinea corporis 03-20-2020 Episodic Nausea and vomiting (2 sources) Nausea 12-25-2021 Episodic Nonspecific chest pain (1 source) Atypical chest pain 10-31-2020 Episodic Nutritional deficiencies (3 sources) Vitamin D deficiency 05-18-2020 Chronic Other gastrointestinal disorders (1 source) Excessive flatus 10-08-2022 Episodic Other lower respiratory disease (1 source) Cough 01-11-2023 Episodic Other nervous system disorders (1 source) Carpal tunnel syndrome 10-08-2022 Chronic Other nervous system disorders (1 source) Disturbance in speech 08-16-2021 Episodic Residual codes; unclassified (3 sources) Disturbance in sleep behavior 07-13-2019 Episodic Unclassified (1 source) Cough, unspecified; Translations: [Cough, unspecified] Onset: 01-11-2023 Past or Other Problems Problem Classification Problem Date Documented Da te Episodic/Chronic Fever of unknown origin (3 sources) Fever; Translations: [Fever, unspecified] Onset: 01-11-2023 01-11-2023 Episodic Malaise and fatigue (3 sources) Fatigue; Translations: [Other fatigue] Onset: 01-11-2023 01-11-2023 Episodic Other upper respiratory infections (3 sources) Acute sinusitis; Translations: [Acute sinusitis, unspecified] Onset: 01-11-2023 01-11-2023 Episodic Unclassified (1 source) Cough, unspecified; Translations: [Cough, unspecified] Onset: 01-11-2023 Results Test Name Value Interpretation Reference Range Facil ity Encounters Encounter Date Encounter Type Care Provider Facility Start: 08-13-2023 End: 08-14-2023 ambulatory SHYANNE CHAMBERS MD Facility:B Start: 02-05-2023 End: 02-06-2023 ambulatory SHYANNE CHAMBERS MD Facility:[facility] Start: 02-05-2023 End: 02-05-2023 Patient encounter procedure SHYANNE CHAMBERS MD [facility] Start: 01-11-2023 End: 01-16-2023 ambulatory TRINI YORK DO Facility:B Start: 08-07-2022 End: 08-07-2022 Patient encounter procedure SHYANNE CHAMBERS MD [facility] Start: 08-17-2021 End: 08-17-2021 Patient encounter procedure KAVON ARBOLEDA [employer]ER [facility] Start: 08-21-2017 Ambulatory Fer Foss Facilit [id number] Procedures Date Procedure Procedure Detail Performing Clinician Start: 06-01-2017 Coronary artery bypa ss grafts x 3 KAVON ARBOLEDA [employer]ER Cardiac catheterization KAVON ARBOLEDA [employer]ISHER Prostatectomy KAVON ARBOLEDA AP RN-PLANISHER Immunizations Immunization Date Immunization Notes Care Provider Fa cility 08-07-2020 influenza virus vaccine, unspecified formulation KAVON ARBOLEDA [employer] [facility] Payers Date Payer Category Payer Medicare [id number] 2023 Private Health Insurance [id number] 1950 Unknown [id number] 1950 Unknown [id number] 1950 Unknown [id number] Medicare [id number] Social History Date Type Detail Facility Start: 04-15-2019 Never smoked t obacco (finding) [facility] Sex Assigned At Male [facility] Medical Equipment Procedure Code Equipment Code Equipment Origin al Text Equipment Identifier Dates FDA Start: 04-26-2019 Unknown Unknown 04/26/19 Unknown Unknown FDA Start: 04-26-2019 See Instructions , True Metrix Test Strips. 1 two times daily. #200/ 90 days x 3 refills, # 200 EA, 3 Refill(s), Pharmacy: [facility]/pharmacy #[id number], Controlled diabetes mellitus with hyperglycemia, 175.3, cm, 05/18/20 14:46:00 EDT, Height, 84.3, kg, ... Start: 07-27-2020 Unknown Unknown 04/26/19 Unknown Unknown FDA Start: 04-26-2019 See Instructions , True Metrix Test Strips. 1 two times daily. #200/ 90 days x 3 refills, # 200 EA, 3 Refill(s), Pharmacy: [facility], Controlled diabetes mellitus with hyperglycemia, 175, cm, 10/08/22 11:34:00 EST, Height, 85.5, kg, 10/08/22... Start: 12-16-2022 Evaluation + Plan note Laboratory Note Date & Type Note Facility Evaluation + Plan note Future Appointments Appointment Date:02/14/2022 03:30:00 PM Scheduled Provider:SHYANNE CHAMBERS MD Location:[facility] Appointment Type:[facility]O OV Future Scheduled TestsThyroid Stimulating Hormone 02/14/22A1C Hemoglobin 02/14/22Lipid Profile 02/14/22Vitamin D Level 02/14/22Complete Metabolic Panel 02/14/22 [facility] Evaluation + Plan note Laboratory Note Date & Type Note Facility Evaluation + Plan note Future Appointments Appointment Date:08/12/2022 04:00:00 PM Scheduled Provider:MENG NATH DO Location:[facility] Appointment Type:PC OV Appointment Date:08/15/2022 01:15:00 PM Scheduled Provider:SHYANNE CHAMBERS MD Location:[facility] Appointment Type:ENDO OV Future Scheduled TestsCOVID-19 Only (AO) 09/05/21 [facility] Evaluation + Plan note Laboratory Note Date & Type Note Facility Evaluation + Plan note Future Appointments Appointment Date:02/13/2023 01:15:00 PM Scheduled Provider:SHYANNE CHAMBERS MD Location:[facility] Appointment Type:ENDO OV Appointment Date:03/25/2023 03:30:00 PM Scheduled Provider:MENG NATH DO Location[facility] Appointment Type:PC OV Future Scheduled TestsLipid Profile 11/05/22 [facility] Hospital course Narrative Note Date & Type Note Facility Hospital course Narrative No data available for this section [facility] Hospital Discharge instructions Note Date & Type Note Facility Hospital Discharge instructions No data available for this section [facility] Progress note Note Date & Type Note Facility Progress note No data available for this section [facility] Summary Purpose Family History No Family History Records FoundNo Family History Records Found Advance Directives No Advanced Directives Records FoundNo Advanced Directives Records Found Additional Source Comments (unrecognized sect ion and content) No Status Records FoundNo Status Records Found INFORMATION SOURCE (unrecogn ized section and content) DATE CREATED AUTHOR AUTHOR'S ORGANIZ ATION 08/17/2023 [facility] ([place]) Care Team (unrecognized sect ion and content) Care Team Personnel Name: MENG NATH DO Position: P4 Physician - Primary Care Med Service: Active Provider Member Role: Primary Care Physician Address: Address: [address] [place] [address] Care Team Related Persons Name: NELL DOMINGUEZ Patient Care team informatio n (unrecognized section and content) Care Team Personnel Name: MENG NATH Position: P4 Physician - Primary Care Member Role: Primary Care Physician Address: Address: [address] [place] [address] Care Team Related Persons Name: NELL DOMINGUEZ FOR RECORDS PERTAINING TO PATIENTS WHO ARE OR HAVE BEEN ENROLLED IN A CHEMICAL DEPENDENCY/SUBSTANCEABUSE PROGRAM, SOME INFORMATION MAY BE OMITTED. This clinical summary was aggregated from multiple sources. Caution should be exercised in using it in the provision of clinical care. This summary normalizes information from multiple sources, and as a consequence, information in this document may materially change the coding, format and clinical context of patient data. In addition, data may be omitted in some cases. CLINICAL DECISIONS SHOULD BE BASED ON THE PRIMARY CLINICAL RECORDS. [facility] [employer] [facility]. provides no warranty or guarantee of the accuracy or completeness of information in this document.
[2023-11-14 16:59] LABS: PSA,Total- Diagnostic < 0.01 ng/mL (0.0-4.0)
== END | disposition home or self-care (01) ==
LOC: LAB 15:07
PROVIDERS: PCP Preventive Medicine Occupational Medicine; Referring Provider Registered Nurse; Visit Provider Registered Nurse
DX: C61 Malignant neoplasm of prostate (principal)
CPT/HCPCS: 36415; 84153

== ENCOUNTER → 2024-08-23 | Outpatient (CLI) | payer MEDICARE, OTHER, SELFPAY ==
--- NOTE | 2024-08-23 08:55 | STRESSREP_ITS ---
Stress Test Report Date: 08/23/2024 Procedure: Exercise tolerance test/imaging study Indications: CAD Consent: Per the patient Procedure: The patient exercised on a Titus protocol for 9 minutes and 30 seconds achieving a peak heart rate of 148 bpm (100% predicted maximal heart rate) with a peak blood pressure 212/82 mmHg and a peak MET capacity of 11.7 METs. The baseline ECG demonstrated sinus rhythm. The peak exercise ECG demonstrated no ischemic changes. Occasional PVCs pretest, during exercise and in recovery. The functional capacity was considered excellent for age. There was no complaint of chest discomfort during exercise or recovery. The examination was discontinued secondary to target heart rate being achieved. The patient was injected with 9.9 mCi of technetium 99m Cardiolite and subsequently rest SPECT Cardiolite nuclear imaging was obtained in the horizontal long, vertical long, and short axis views. Post-exercise, the patient was injected with 32.5 mCi of technetium 99m Cardiolite and subsequently stress SPECT Cardiolite nuclear imaging was obtained in the horizontal long, vertical long, and short axis views. A gated Cardiolite study at peak stress was obtained. Rest and stress SPECT Cardiolite nuclear imaging status post realignment, normalization, and attenuation correction, demonstrates the appearance of relative uniform tracer uptake and myocardial perfusion appearing within normal limits. There is end systolic thickening and brightening. The gated Cardiolite study demonstrates myocardial thickening and inward wall motion. The reported LVEF is 69%. Impression: 1. Technically adequate (percent predicted maximal heart rate greater than 85%) exercise tolerance test 2. Peak exercise ECG with no ischemic changes 3. Occasional PVCs pretest, during exercise and in recovery 4. Rest and stress SPECT Cardiolite nuclear imaging demonstrate relative uniform tracer uptake and myocardial perfusion appearing within normal limits. 5. The gated Cardiolite study reports an LVEF of 69%. This note was generated with [employer] software. It may contain incorrect words, spelling, and punctuation that were not noted in checking the note before signing.
== END | disposition home or self-care (01) ==
LOC: CVS 06:01
PROVIDERS: PCP Preventive Medicine Occupational Medicine; Referring Provider Physician Assistant Medical; Visit Provider Physician Assistant Medical
DX: R07.9 Chest pain, unspecified (principal); I25.10 Atherosclerotic heart disease of native coronary artery without angina pectoris
CPT/HCPCS: 78452; 93017; A9500; A4216

== ENCOUNTER → 2025-03-16 | Outpatient (CLI) | payer MEDICARE, OTHER, SELFPAY ==
[2025-03-16 12:41] LABS: PSA,Total- Diagnostic < 0.02 ng/mL (0.00-4.00)
== END | disposition home or self-care (01) ==
LOC: LAB 10:12
PROVIDERS: PCP Preventive Medicine Occupational Medicine; Referring Provider Nurse Practitioner; Visit Provider Nurse Practitioner
DX: C61 Malignant neoplasm of prostate (principal)
CPT/HCPCS: 36415; 84153

== ENCOUNTER 2025-10-05 13:35 | Emergency (ER) | payer MEDICARE, OTHER, SELFPAY ==
[2025-10-05 13:37] VITALS: BP 190/97; PULSE 78; RESP 22; TEMP 36.9; O2SAT 100; BMI 27.0
[2025-10-05 13:39] VITALS: PULSE 74; RESP 16; O2SAT 98
[2025-10-05 14:09] LABS: Hematocrit 38.1 % (40-54); Hemoglobin 13.3 g/dL (13.0-16.5); Immature Granulocytes Count 0.020 X10^3/uL (0.0-0.0); Mean Corp Hgb Conc 34.9 g/dL (32-36); Mean Corpuscular Volume 88.6 fL (80-94); Mean Platelet Vol. 9.6 fl (6.2-12.0); NRBC Flagged by Analyzer 0 % (0-5); Platelet Count 232 K/mm3 (150-450); RBC Distribution Width CV 13.0 % (11.6-14.6); RBC Distribution Width SD 41.7 fl (35.1-43.9); Red Blood Count 4.30 M/mm3 (4.6-6.2); White Blood Count 7.3 K/mm3 (4.4-11.0)
[2025-10-05 14:43] LABS: AST(SGOT) 26 U/L (<=37); Alanine Aminotransfer ALT/SGPT 36 U/L (<=46); Albumin, Serum 4.2 g/dL (3.4-4.8); Alkaline Phosphatase 57 U/L (40-129); Anion Gap 10 (5-15); BUN 18 mg/dL (4-19); BUN/Creat Ratio 17.9 RATIO (10-20); Calcium,Total 9.4 mg/dL (7.6-11.0); Carbon Dioxide 25.6 mmol/L (21.0-32.0); Chloride 102 mmol/L (98-108); Estimated Creatinine Clearance 67.13 ml/min (50-250); Globulin 2.4 g/dL (2.2-4.2); Glucose 142 mg/dL (70-99); Lipase 18 U/L (13-75); Potassium 4.4 mmol/L (3.3-5.1)
--- NOTE | 2025-10-05 15:49 | CT_ITS ---
PROCEDURE: CT ABDOMEN/PELVIS W IV CONT ONLY 10/05/2025 REASON FOR EXAM: RIGHT SIDED ABDOMINAL PAIN TECHNIQUE: Procedure Code: [id number] Modality: CT Procedure: ABDOMEN/PELVIS W IV CONT ONLY Coronal and Sagittal reconstruction series were provided. CONTRAST: Isovue 370 VOLUME: 100 mL One or more dose reduction techniques were used (e.g., Automated exposure control, adjustment of the mA and/or kV according to patient size, use of iterative reconstruction technique. RADIATION DOSE SUMMARY: DLP: 905.17 mGycm COMPARISON: 11/24/2018 FINDINGS: Lung bases: Clear. Liver: No significant abnormality. Gallbladder: Unremarkable. Spleen: Unremarkable. Pancreas: Unremarkable. Adrenals: Unremarkable. Kidneys: Normal in size with symmetric enhancement. Few bilateral small subcentimeter nonobstructive renal stones, the largest in the left lower pole measuring 4 mm. No ureteral calculi or hydronephrosis. Bladder: Unremarkable. Reproductive Organs: Nonenlarged prostate. Small fat containing inguinal hernias. Bowel: No evidence of obstruction or active inflammation. Normal appendix. Lymph nodes: No suspicious lymph node enlargement. Vasculature: Normal caliber abdominal aorta. Mild-moderate atherosclerotic disease. Peritoneum / Retroperitoneum: No ascites or free air. Bones: Mild degenerative changes of the spine CT/Abdomen/Pelvis W IV Cont ONLY IMPRESSION: No acute or active inflammatory intra-abdominal pathology. Few small subcentimeter nonobstructive renal stones. No hydronephrosis. Reading Location: [id number]
[2025-10-05 16:00] VITALS: BP 170/101
[2025-10-05 16:41] LABS: Mucous, Urine 0 SEEN /hpf (<or=2+); Red Blood Cells-Urine 0 SEEN /hpf (0-5); Squamous Epithelial Cells - UA 0 SEEN /hpf (0-5)
[2025-10-05 16:46] LABS: Color, Urine Straw (Yellow); Glucose, Dipstick Normal (Normal); Ketone-Dipstick Negative (Negative); Leukocyte Esterase-Dipstick 25 /ul (Negative); Nitrite-Dipstick Negative (Negative); Occult Blood-Urine Negative /ul (Negative); Protein-Dipstick Negative (Negative); Specific Gravity, Urine 1.010 (1.002-1.030); Urine Bilirubin Dipstick Negative (Negative)
--- NOTE | 2025-10-05 17:30 | EX.ED.DYSGE1 ---
HPI History of Present Illness Chief Complaint: Abd Pain Narrative Narrative: Patient was seen and examined after presenting to ED for right-sided abdominal pain more so on the right lower quadrant that started earlier today reports that that they have had episodes of this in the previous week but has not improved recently had shoulder surgery on the fifth. [facility] Medical History History of diabetes mellitus History of [place] (myocardial infarction) Type 2 diabetes mellitus Pure hypercholesterolemia Essential hypertension Chronic diastolic heart failure Atherosclerotic heart disease of [place] coronary artery without angina pectoris Home Medications ?Medication ?Instructions ?Recorded ?Last Taken ?Type aspirin 81 mg tablet,delayed 81 mg PO DAILY heart health 11/05/18 10/05/25 History release dulaglutide 0.75 mg/0.5 mL 1.5 mg subcut QWEEK diabetes 06/03/22 Unknown History subcutaneous pen injector (Trulicity) pravastatin 80 mg tablet 80 mg PO QHS high cholesterol 06/04/22 10/04/25 History cholecalciferol (vitamin D3) 25 25 mcg PO DAILY PRN supplement 07/30/23 10/05/25 History mcg (1,000 unit) capsule ezetimibe 10 mg tablet (Zetia) 10 mg PO DAILY #90 tabs 08/11/24 Unknown Rx metformin 500 mg tablet,extended 1,500 mg PO QPM diabetes 08/11/24 10/04/25 History release 24 hr metoprolol tartrate 25 mg tablet 25 mg PO BID bp #180 tabs 01/11/25 10/05/25 Rx lisinopril 5 mg tablet 5 mg PO DAILY #90 tabs 09/19/25 10/04/25 Rx polyethylene glycol 3350 17 17 g PO DAILY #238 grams 10/05/25 Unknown Rx gram/dose oral powder (Miralax) Allergy/AdvReac Type Severity Reaction Status Date / Time atorvastatin AdvReac Intermediate Myalgias, Verified 10/05/25 13:39 nausea amiodarone AdvReac Vomiting Verified 10/05/25 13:39 Family History Mother Diabetes CVA (cerebral vascular accident) Myocardial infarction Brother CVA (cerebral vascular accident) Uncle Myocardial infarction Surgical History Hx of CABG History of repair of rotator cuff (~09/23/25) History of prostatectomy History of coronary artery bypass graft x 3 (~06/01/17) Social History household members: spouse Smoking Status: Never smoker alcohol intake: never substance use type: does not use caffeine: Yes Type: carbonated beverages and coffee Number of servings: 4 ROS ROS ED ROS Narrative Pertinent Positives: Right-sided right lower abdominal pain Pertinent Negatives: Fevers chills vomiting diarrhea black or bloody stools urinary symptoms chest pain pressure shortness of breath The remainder of review of systems negative unless otherwise stated in the HPI above. Systems reviewed including constitutional, psychiatric, cardiovascular, respiratory, integument, HENT, gastrointestinal. EXAM Physical Exam Narrative Exam Narrative: Afebrile hemodynamically stable does not appear toxic or in distress normocephalic and atraumatic. Cranial nerves II through XII grossly intact. No palpable pulsatile abdominal mass abdomen was soft nondistended but tender right in the middle the right side of the abdomen no overlying abdominal wall hernias or erythema no vesicular lesions or other skin discoloration no crepitus either. Intact and equal MSPs in the extremities. Const Vital Signs: 10/05/25 13:37 10/05/25 13:39 10/05/25 16:00 Temperature 98.4 F Temperature Source Oral Temporal Pulse Rate 78 74 Respiratory Rate 22 H 16 Blood Pressure 190/97 H 170/101 H Blood Pressure Mean 128 124 Pulse Ox 100 98 Oxygen Delivery Method Room Air Room Air 10/05/25 18:02 Temperature Temperature Source Pulse Rate 63 Respiratory Rate 16 Blood Pressure 166/105 H Blood Pressure Mean 125 Pulse Ox 98 Oxygen Delivery Method Room Air MDM MDM MDM Narrative Medical decision making narrative: Nursing notes, triage notes, available previous documentation, and vital signs were reviewed. Any discrepancies noted were addressed. Differential Diagnoses: Low suspicion for mesenteric ischemia the pain is not out of proportion there is no abdominal wall hernia that appears to be incarcerated or strangulated. No abdominal wall cellulitis is not a necrotizing process not shingles could be appendicitis or cholecystitis or pancreatitis or diverticular disease Labs Reviewed: No leukocytosis leukopenia or anemia no electrolyte abnormality renal insufficiency or transaminitis lipase is 18 urinalysis without significant evidence of infection. Imaging Reviewed: CT of the abdomen showing few small subcentimeter nonobstructive renal stones mostly on the left when I go and review the images myself there appears to be rather significant stool burden in the right upper quadrant of the abdomen Previous Documentation Reviewed: None available or applicable at this time. ED Course: Patient presenting with symptoms as stated above it appears that he is constipated has a moderate stool burden in the right upper portion of his abdomen. Labs are again unremarkable patient was up and ambulatory I did discuss with him the findings that I could see on his CT I will provide him with MiraLAX he is to take it once daily. Return precautions follow-up recommendations provided patient stable for discharge This note was made utilizing voice recognition software. All attempts were made to correct spelling or other errors prior to note completion. However, due to the fast-paced nature of emergency medicine, some errors may still be present. Lab Data Labs: Laboratory Results - last 24 hr 10/05/25 10/05/25 14:00 16:35 WBC 7.3 RBC 4.30 L Hgb 13.3 Hct 38.1 L MCV 88.6 MCH 30.9 MCHC 34.9 RDW Std Deviation 41.7 RDW Coeff of Andres 13.0 Plt Count 232 MPV 9.6 Immature Gran % (Auto) 0.300 Neut % (Auto) 55.8 Lymph % (Auto) 36.1 [place] % (Auto) 5.5 Eos % (Auto) 1.7 Baso % (Auto) 0.6 Absolute Neuts (auto) 4.1 Absolute Lymphs (auto) 2.62 Nucleated RBC % 0 Sodium 137 Potassium 4.4 Chloride 102 Carbon Dioxide 25.6 Anion Gap 10 BUN 18 Creatinine 0.98 Estim Creat Clear Calc 67.13 Est GFR (MDRD) Non-Af 81 BUN/Creatinine Ratio 17.9 Glucose 142 H Calcium 9.4 Total Bilirubin 0.42 AST 26 ALT 36 Alkaline Phosphatase 57 Total Protein 6.6 Albumin 4.2 Globulin 2.4 Albumin/Globulin Ratio 1.8 Lipase 18 Urine Color Straw Urine Clarity Clear Urine pH 6.5 Ur Specific [place] 1.010 Urine Protein Negative Urine Glucose (UA) Normal Urine Ketones Negative Urine Occult Blood Negative Urine Nitrite Negative Urine Bilirubin Negative Urine Urobilinogen Normal Ur Leukocyte Esterase 25 H Urine RBC 0 SEEN Urine WBC 0 SEEN Ur Squamous Epith Cells 0 SEEN Urine Bacteria 0 SEEN Urine Mucus 0 SEEN Radiography Diagnostic Testing: Clinical Impression(s) from Imaging Studies Abdomen/Pelvis CT 10/05/25 15:49 IMPRESSION: No acute or active inflammatory intra-abdominal pathology. Few small subcentimeter nonobstructive renal stones. No hydronephrosis. Reading Location: [id number] Discharge Plan Triage Chief Complaint: Abd Pain ED Provider: Isidro Baum Dx/Rx/DC Orders Clinical Impression: Right sided abdominal pain, Constipation Instructions: ED Constipation (Adult) Prescriptions: New polyethylene glycol 3350 [Miralax] 17 gram/dose powder 17 g PO DAILY Qty: 238 0RF No Action metformin 500 mg tablet extended release 24 hr 1,500 mg PO QPM Trulicity 0.75 mg/0.5 mL pen injector 1.5 mg subcut QWEEK cholecalciferol (vitamin D3) 25 mcg (1,000 unit) capsule 25 mcg PO DAILY PRN (Reason: supplement) ezetimibe [Zetia] 10 mg tablet 10 mg PO DAILY Qty: 90 3RF aspirin 81 MG tablet,delayed release (DR/EC) 81 mg PO DAILY pravastatin 80 mg tablet 80 mg PO QHS metoprolol tartrate 25 mg tablet 25 mg PO BID Qty: 180 3RF lisinopril 5 mg tablet 5 mg PO DAILY Qty: 90 3RF Primary Care Provider: Juwan White Referrals: Juwan White DO [Primary Care Provider, Medical] Activity Restrictions/Additional Instructions: Be sure to follow-up with your primary care doctor if you are having worsening symptoms do not hesitate to return Print Language: Slovak Disposition Disposition: Home, Self Care
[2025-10-05 18:02] VITALS: BP 166/105; PULSE 63; RESP 16; O2SAT 98
[2025-10-05 18:39] VITALS: BP 167/75; PULSE 65; RESP 16; TEMP 36.9; O2SAT 98
== END 2025-10-05 18:43 | disposition home or self-care (01) ==
PROVIDERS: Emergency Provider Specialist/Technologist Athletic Trainer; Visit Provider Specialist/Technologist Athletic Trainer
DX: R10.31 Right lower quadrant pain (principal); I11.0 Hypertensive heart disease with heart failure; I50.32 Chronic diastolic (congestive) heart failure; E11.9 Type 2 diabetes mellitus without complications; K59.00 Constipation, unspecified; E78.00 Pure hypercholesterolemia, unspecified; I25.10 Atherosclerotic heart disease of native coronary artery without angina pectoris; I25.2 Old myocardial infarction; Z79.82 Long term (current) use of aspirin; Z79.899 Other long term (current) drug therapy; Z79.85 Long-term (current) use of injectable non-insulin antidiabetic drugs; Z79.84 Long term (current) use of oral hypoglycemic drugs; Z95.1 Presence of aortocoronary bypass graft; Z90.79 Acquired absence of other genital organ(s)
CPT/HCPCS: 74177; 80053; 81001; 83690; 85025; 99283; Q9967; A4216